=== PATIENT | male | born 1950 | race Caucasian/White ===

== ENCOUNTER 2019-11-19 11:22 | Inpatient (IN) | payer MEDICARE, MEDICAID ==
[~2019-11-19] VITALS: Ht 175.3 cm; Wt 61.7 kg
[2019-11-19 12:11] LABS: Basophils # (auto) 0.1 10 ^3/uL (0-0.2); Basophils % (auto) 1.4 % (0.0-2.0); Eosinophils # (auto) 0.1 10 ^3/uL (0-0.8); Eosinophils % (auto) 1.8 % (0.0-7.0); Hematocrit 42.6 % (41.0-53.0); Hemoglobin 14.3 g/dL (13.5-17.5); Lymphocytes % (auto) 18.8 % (10.0-50.0); Mean Corpuscular Hemoglobin 30.1 pg (28.0-32.0); Mean Corpuscular Hgb Conc. 33.5 g/dL (32.0-36.0); Mean Corpuscular Volume 89.9 fL (80.0-100.0); Monocytes # (auto) 0.5 10 ^3/uL (0-1.3); Monocytes % (auto) 9.5 % (0.0-12.0); Neutrophils # (auto) 3.6 10 ^3/uL (1.6-8.6); Neutrophils % (auto) 68.5 % (37.0-80.0); Platelet Count (auto) 156 10^3/uL (140-450); Red Blood Cells 4.74 10^6/uL (4.5-5.90); Red Cell Distribution Width 13.5 % (11.8-14.3); White Blood Cell 5.3 10^3/uL (4.4-10.8)
[2019-11-19 12:28] LABS: Albumin 2.4 g/dL (3.4-5.0); Calcium 8.4 mg/dL (8.5-10.1)
[2019-11-19 12:39] LABS: BUN/Creatinine Ratio 18.7
[2019-11-19 12:40] LABS: Bilirubin, Total 1.2 mg/dL (0.2-1.0); Total Protein 5.6 g/dL (6.4-8.2)
[2019-11-19] MEDS ORDERED: SODIUM CHLORIDE 0.9% 1,000 ML IV ONE (13:00)
[2019-11-19 13:24] LABS: Magnesium 1.8 mg/dL (1.6-2.6)
[2019-11-19 13:26] LABS: INR 1.06 (0.9-1.15); Partial Thromboplastin Time 29.3 sec (23.64-32.05)
[2019-11-19] MEDS ORDERED: IOHEXOL 350 MG/ML 100ML IJ ONE (15:43)
[2019-11-19] MEDS ORDERED: cefTRIAXone 1GM/50ML D5W 50 ML IV ONE (16:15)
[2019-11-19] MEDS ORDERED: ASPirin-EC 81 mg tab PO ONE (16:15)
[2019-11-19 16:27] LABS: Urine Bacteria NONE SEEN /hpf (None Seen); Urine Blood Negative /uL (Negative); Urine Mucus FEW (None Seen); Urine Specific Gravity 1.008 (1.001-1.035); Urine WBC 1 /hpf (0 - 3)
[2019-11-19] MEDS ORDERED: HYDROcodone-ACET 10/325MG TAB PO ONE (17:45)
[2019-11-19] MEDS ORDERED: NITROGLYCERIN 0.4 MG SL TAB SL PRN (18:15)
[2019-11-19] MEDS ORDERED: ACETAMINOPHEN 500 MG TAB PO PRN (18:15)
[2019-11-19] MEDS ORDERED: MORPHINE SULF INJ 2 MG/ML SYRINGE 1ML IV PRN ×2 (18:15)
[2019-11-19] MEDS ORDERED: ONDANSETRON HCL 4 MG/2 ML VIAL IV PRN (18:15)
--- NOTE | 2019-11-19 20:45 | NUR ---
Telemetry admit from [facility] admitted to Telemetry unit. Patient oriented to Mora abernathy RN, unit, room, bed, and unit policies regarding patient care and visiting hours. Patient now on continuous telemetry monitoring, tele box #29 and telemetry reading on arrival to unit is SINUS RHYTHM . Patient placed on bedside oxygen, weighed by bedscale and encouraged to call if they need something. All questions and concerns addressed, patient verbalized understanding.
[2019-11-19 21:00] VITALS: BP 116/71
[2019-11-19] MEDS: oxyCODONE ER 20 MG TAB PO SCH (21:24)
[2019-11-19] MEDS: methylPREDNISolone SOD SUCC 40 MG/ML VL IV SCH (21:24)
--- NOTE | 2019-11-19 21:24 | NUR ---
PAIN OXYCONTIN GIVEN ORDERED BY MD ON SCHEDULED TIME. PATIENT RATES PAIN 10/10 TO HIS BACK, NECK AND SHOULDERS WILL REASSESS PAIN IN ONE HOUR
--- NOTE | 2019-11-19 22:24 | NUR ---
PAIN REASSESSMENT PATIENT NOW RESTING COMFORTABLY, RATES PAIN 5/10, WHICH HE STATES IS TOLERABLE
[2019-11-19] MEDS: ALBUTEROL SULF 2.5 MG/0.5ML(0.5%) NEB SOLN NEB SCH (22:30)
[2019-11-19] MEDS: IPRATROPIUM BROM 0.5 MG/2.5ML INH SOL NEB SCH (22:30)
[2019-11-19] MEDS: BUDESONIDE (INHALATION) 0.5 MG/2 ML NEB NEB SCH (22:30)
[2019-11-19 23:04] VITALS: BP 121/80
[2019-11-20] MEDS ORDERED: ALBUAER3 IN (02:49)
[2019-11-20] MEDS ORDERED: CELE200C PO (02:50)
[2019-11-20] MEDS ORDERED: TAMS0.4C36 PO (02:51)
[2019-11-20] MEDS ORDERED: LOSA-69 PO (02:51)
[2019-11-20] MEDS ORDERED: DULO60CA PO (02:52)
[2019-11-20] MEDS ORDERED: PANT1INJ3 PO (02:52)
[2019-11-20] MEDS ORDERED: MELA3TAB27 PO (02:53)
[2019-11-20] MEDS ORDERED: LUBI24CA6 PO (02:54)
[2019-11-20] MEDS ORDERED: TIZA4CAP PO (02:55)
[2019-11-20] MEDS ORDERED: BENZ100C97 PO (02:55)
[2019-11-20] MEDS ORDERED: LISI-646 PO (02:56)
[2019-11-20] MEDS ORDERED: SIMV10TA84 PO (02:57)
[2019-11-20] MEDS ORDERED: ATOR40TA52 PO (02:58)
[2019-11-20] MEDS ORDERED: FINA5TAB4 PO (02:58)
[2019-11-20] MEDS ORDERED: BUDE1AER4 IN (02:59)
[2019-11-20] MEDS ORDERED: DULO60CA90 PO (03:00)
[2019-11-20] MEDS ORDERED: PRE1T PO (03:02)
[2019-11-20] MEDS ORDERED: AML5T PO (03:04)
[2019-11-20] MEDS ORDERED: SERT-274 PO (03:05)
[2019-11-20 05:00] VITALS: BP 121/86
[2019-11-20] MEDS: ALBUTEROL SULF 2.5 MG/0.5ML(0.5%) NEB SOLN NEB SCH ×5 (06:07→22:09)
[2019-11-20] MEDS: IPRATROPIUM BROM 0.5 MG/2.5ML INH SOL NEB SCH ×5 (06:07→22:09)
[2019-11-20] MEDS: BUDESONIDE (INHALATION) 0.5 MG/2 ML NEB NEB SCH ×2 (06:08→22:09)
--- NOTE | 2019-11-20 07:00 | NUR ---
CLOSING CAMPAIGN MANAGER AT BEDSIDE, MORNING RN MADE AWARE CALL LIGHT WITHIN REACH CARE ENDORSED TO DAY SHIFT RN
--- NOTE | 2019-11-20 08:00 | NUR ---
AWAKE ALERT ORIENTED TIMES 4. MASK ON 8L/MIN SATURATION 94%. HE REFUSED AN OXYMIZER AT THIS TIME TIME HE BEATRIZ IT HURTS HIS EARS. NO SIGNS OF DISTRESS.
--- NOTE | 2019-11-20 08:30 | NUR ---
REMOVED MASK TO EAT BREAKFAST NO SIGNS OF DISTRESS.
[2019-11-20 08:48] VITALS: BP 124/88
--- NOTE | 2019-11-20 10:00 | NUR ---
AMBULATED TO BATHROOM INDEPENDENTLY STEADY GAIT.
[2019-11-20] MEDS: oxyCODONE ER 20 MG TAB PO SCH ×2 (10:18→21:51)
[2019-11-20] MEDS: DULoxetine HCL 30 MG CAP PO SCH (10:18)
[2019-11-20] MEDS: methylPREDNISolone SOD SUCC 40 MG/ML VL IV SCH ×2 (10:19→21:51)
[2019-11-20] MEDS: FAMOTIDINE 20 MG TAB PO SCH (10:19)
[2019-11-20] MEDS: AZITHROMYCIN 250 MG TAB PO SCH (10:19)
--- NOTE | 2019-11-20 12:00 | NUR ---
SPOKE TO KESHAV RODRIGUEZ IN REFERENCE TO HELPING PATIENT OBTAIN A PRIMARY CARE PHYSICIAN.
[2019-11-20 13:00] VITALS: BP 135/84
[2019-11-20] MEDS ORDERED: cefTRIAXone 1GM/50ML D5W 50 ML IV ONE (13:15)
--- NOTE | 2019-11-20 13:24 | NUR ---
DR Addis FITZGERALD AT BEDSIDE DISCUSSED PLAN OF CARE WITH PATIENT. PULMONOLOGY CONSULT ORDERED FOR DR BRENNAN.
[2019-11-20] MEDS: LORazepam 0.5 MG TAB PO SCH ×2 (14:29→21:52)
[2019-11-20 16:32] VITALS: BP 148/94
[2019-11-20 18:00] VITALS: BP 130/84
[2019-11-20] MEDS ORDERED: DEXTROSE (50%) 50ML SYRG IV PRN (18:45)
--- NOTE | 2019-11-20 19:30 | NUR ---
OPENING NOTE REPORT RECEIVED FROM DAY SHIFT RN PATIENT IS A/OX4, ABLE TO VERBALIZE ALL NEEDS. PATIENT ON 8L SIMPLE FACE MASK WITH O2 AT 94%. POC DISCUSSED WITH PATIENT AND ALL QUESTIONS ANSWERED. WILL MONITOR Q1H PRN THROUGHOUT SHIFT, CALL LIGHT WITHIN REACH.
[2019-11-20] MEDS: ACCU-CHEK COMFORT CURVE STRIP VI SCH (21:45)
[2019-11-20] MEDS: InsuLIN REG 1unit/0.01ml Soln (100units/ml) SC SCH (21:50)
--- NOTE | 2019-11-20 21:51 | NUR ---
PAIN MEDICATED PATIENT WITH SCHEDULED OXYCONTIN. PATIENT RATES PAIN 10/10 TO HIS BACK WILL REASSESS IN ONE HOUR
--- NOTE | 2019-11-20 22:51 | NUR ---
PAIN REASSESSMENT PATIENT DENIES ANY PAIN. RESTING COMFORTABLY IN BED, WATCHING TV
[2019-11-21 05:00] VITALS: BP 140/88
[2019-11-21] MEDS: LORazepam 0.5 MG TAB PO SCH (06:00)
[2019-11-21] MEDS: ALBUTEROL SULF 2.5 MG/0.5ML(0.5%) NEB SOLN NEB SCH ×5 (06:28→22:23)
[2019-11-21] MEDS: IPRATROPIUM BROM 0.5 MG/2.5ML INH SOL NEB SCH ×5 (06:28→22:23)
--- NOTE | 2019-11-21 06:28 | NUR ---
Respiratory note: At bedside for scheduled medneb tx, found pt with O2 mask off, SPO2 74% on room air. Administered medneb tx, pt tolerated well, O2 saturation increasing. After tx, placed pt back on O2 simple mask 7LPM, SPO2 92%. Educated and instructed pt to keep O2 on, pt verbalized understanding. No s/s of respiratory distress noted.
--- NOTE | 2019-11-21 06:50 | NUR ---
MEDICATION HELD HELD AM ATIVAN DOSE PATIENT SLEEPING COMFORTABLY- NO SIGNS OF ANXIETY
[2019-11-21] MEDS: InsuLIN REG 1unit/0.01ml Soln (100units/ml) SC SCH ×4 (06:54→21:56)
--- NOTE | 2019-11-21 07:20 | NUR ---
CLOSING PATIENT IS SLEEPING COMFORTABLY, VISIBLE RISE AND FALL OF CHEST. FALL PRECAUTIONS IN PLACE, CALL LIGHT WITHIN REACH CARE ENDORSED TO DAYSHIFT RN
[2019-11-21] MEDS: cefTRIAXone 1GM/50ML D5W 50 ML IV SCH (08:44)
[2019-11-21] MEDS: FAMOTIDINE 20 MG TAB PO SCH (08:55)
[2019-11-21] MEDS: methylPREDNISolone SOD SUCC 40 MG/ML VL IV SCH ×2 (08:55→21:46)
[2019-11-21] MEDS: AZITHROMYCIN 250 MG TAB PO SCH (08:55)
[2019-11-21] MEDS: DULoxetine HCL 30 MG CAP PO SCH (08:56)
[2019-11-21 09:00] VITALS: BP 149/100
[2019-11-21] MEDS: BUDESONIDE (INHALATION) 0.5 MG/2 ML NEB NEB SCH ×2 (10:08→22:23)
[2019-11-21] MEDS ORDERED: HYDROcodone-ACET 5/325MG TAB PO PRN (10:15)
[2019-11-21 10:20] LABS: Albumin 2.6 g/dL (3.4-5.0); Bilirubin, Direct 0.2 mg/dL (0-0.2)
[2019-11-21 10:23] LABS: Bilirubin, Total 0.3 mg/dL (0.2-1.0); Total Protein 6.1 g/dL (6.4-8.2)
[2019-11-21] MEDS: ACCU-CHEK COMFORT CURVE STRIP VI SCH ×2 (10:45→21:57)
--- NOTE | 2019-11-21 11:30 | NUR ---
DR. BRENNAN AT BEDSIDE TO DISCUSS PLAN OF CARE
[2019-11-21] MEDS ORDERED: oxyCODONE ER 20 MG TAB PO ONE (12:00)
[2019-11-21] MEDS: MECLIZINE HCL 25 MG TAB PO PRN ×2 (12:12→20:37)
--- NOTE | 2019-11-21 14:00 | NUR ---
PATIENT COMPLAINS OF CHEST PAIN ONLY WHEN HE BREATHS IN AND OUT, DID EKG AND NOTIFIED DR. FITZGERALD. NO ORDERS GIVEN AT THIS TIME.
--- NOTE | 2019-11-21 16:47 | NUR ---
IV insertion IV access obtained, via clean sterile technique by inserting 22 gauge catheter at LEFT FOREARM after 1 attempt. IV secured properly. No trauma to site. Patient tolerated well. Addendum: 11/21/19 at 1649 by CIARRA CARVAJAL RN RN IV INSERTION TO THE LEFT UPPER ARM NOT FOREARM
[2019-11-21 17:10] VITALS: BP 145/79
--- NOTE | 2019-11-21 19:35 | NUR ---
Opening Shift Note Assumed care of patient, awake and alert. No S/S of distress/SOB or pain. Safety measures in place bed in lowest position, side rails up x2, and call light within reach. Instructed on POC and to call for assist PRN, will continue to monitor for changes Q1hr and PRN.
[2019-11-21 21:40] VITALS: BP 147/101
[2019-11-21] MEDS: oxyCODONE ER 20 MG TAB PO SCH (21:47)
--- NOTE | 2019-11-21 21:47 | NUR ---
Pain Patient complaining of back and neck pain 10/10. Patient has scheduled pain medication, will administer. Educated patient to turn every two hours to help ease the pain in his back. Will reassess in one hour. Will continue to monitor every hour and as needed.
--- NOTE | 2019-11-21 22:47 | NUR ---
Pain reassessment Patient is sleeping with eyes closed. Patient appears to be free of pain and distress. Patient is not moaning, grimacing, or tossing side to side. Will continue to monitor every hour and as needed.
--- NOTE | 2019-11-22 02:35 | NUR ---
Patient awake requesting breathing treatment RT paged.
--- NOTE | 2019-11-22 02:39 | NUR ---
Respiratory returned called, will visit patient and initiate breathing treatment. Patient informed. Will continue to monitor every hour and as needed.
[2019-11-22] MEDS: IPRATROPIUM BROM 0.5 MG/2.5ML INH SOL NEB SCH ×6 (02:56→22:21)
[2019-11-22] MEDS: ALBUTEROL SULF 2.5 MG/0.5ML(0.5%) NEB SOLN NEB SCH ×6 (02:56→22:21)
[2019-11-22 04:47] VITALS: BP 136/97
--- NOTE | 2019-11-22 04:56 | NUR ---
Patient had a two second run of Afib RVR. Patient denies any discomfort of pain. Patient currently running NSR. Will continue to monitor every hour and as needed.
[2019-11-22] MEDS: InsuLIN REG 1unit/0.01ml Soln (100units/ml) SC SCH ×5 (06:44→22:09)
--- NOTE | 2019-11-22 07:33 | NUR ---
Opening Shift Note Assumed care of patient, awake and alert with no S/S of distress/SOB or pain. For safety, patients bed is locked, with 2 side rails up and the call light with in reach. Instructed on POC and to call for assist PRN, will continue to monitor for any changes in condition.
--- NOTE | 2019-11-22 08:30 | NUR ---
Dr. Addis Aaron at bedside to discuss plan of care with patient.
[2019-11-22 09:00] VITALS: BP 125/83
[2019-11-22] MEDS: AZITHROMYCIN 250 MG TAB PO SCH (09:40)
[2019-11-22] MEDS: MECLIZINE HCL 25 MG TAB PO PRN ×3 (09:40→22:05)
[2019-11-22] MEDS: DULoxetine HCL 30 MG CAP PO SCH ×2 (09:40→09:49)
[2019-11-22] MEDS: methylPREDNISolone SOD SUCC 40 MG/ML VL IV SCH (09:40)
[2019-11-22] MEDS: oxyCODONE ER 20 MG TAB PO SCH ×2 (09:41→21:56)
[2019-11-22] MEDS: FAMOTIDINE 20 MG TAB PO SCH (09:41)
[2019-11-22] MEDS: cefTRIAXone 1GM/50ML D5W 50 ML IV SCH (09:41)
[2019-11-22] MEDS: BUDESONIDE (INHALATION) 0.5 MG/2 ML NEB NEB SCH ×2 (10:08→22:21)
--- NOTE | 2019-11-22 11:45 | NUR ---
After receiving verbal ok from Dr. Aaron, patient took shower independently.
[2019-11-22] MEDS: ACCU-CHEK COMFORT CURVE STRIP VI SCH ×2 (12:09→22:01)
[2019-11-22 13:12] VITALS: BP 137/98
--- NOTE | 2019-11-22 13:38 | NUR ---
NUTRITION ASSESSMENT NOTES Please refer to link notes of nutrition screen form filed under the intervention section of the plan of care for further details. Est. Energy Needs: 2327-7544 kcal (25-30 kcal/kg BW). Est. Protein Needs: 76-95 gms/day (1.2-1.5 gms/kg BW). Will continue to monitor pertinent labs and reassess nutrient need prn Addendum: 11/22/19 at [address] Amended: Links added.
[2019-11-22 16:35] VITALS: BP 163/109
--- NOTE | 2019-11-22 17:33 | NUR ---
Paged international relations professor hospitalist for patients elevated blood pressure. Waiting for return call.
--- NOTE | 2019-11-22 18:03 | NUR ---
Dr. Hanson at bedside to assess patient and discuss plan of care. Orders received will document and carry out
--- NOTE | 2019-11-22 18:40 | NUR ---
Dr. Lopez called and received orders, will document and follow through
[2019-11-22] MEDS: LISINOPRIL 20 MG TAB PO SCH (19:17)
[2019-11-22] MEDS: amLODIPine BESYLATE 5 MG TAB PO SCH (19:17)
[2019-11-22 19:21] VITALS: BP 152/96
--- NOTE | 2019-11-22 19:35 | NUR ---
Opening Shift Note Assumed care of patient, awake and alert. No S/S of distress/SOB or pain. Safety measures in place bed in lowest position, side rails x2 up, and call light within reach. Instructed on POC and to call for assist PRN, will continue to monitor for changes Q1hr and PRN.
[2019-11-22] MEDS: methylPREDNISolone SOD SUCC 125 MG/2 ML VL IV SCH (21:56)
[2019-11-22 22:00] VITALS: BP 132/72
[2019-11-23 05:56] VITALS: BP 140/89
[2019-11-23] MEDS: InsuLIN REG 1unit/0.01ml Soln (100units/ml) SC SCH ×4 (06:49→22:25)
[2019-11-23] MEDS: ALBUTEROL SULF 2.5 MG/0.5ML(0.5%) NEB SOLN NEB SCH ×5 (07:21→22:14)
[2019-11-23] MEDS: IPRATROPIUM BROM 0.5 MG/2.5ML INH SOL NEB SCH ×5 (07:21→22:14)
--- NOTE | 2019-11-23 08:33 | NUR ---
Dr. Aaron at bedside to discuss plan of care with patient.
[2019-11-23 08:57] VITALS: BP 141/73
[2019-11-23] MEDS: FAMOTIDINE 20 MG TAB PO SCH (09:39)
[2019-11-23] MEDS: methylPREDNISolone SOD SUCC 125 MG/2 ML VL IV SCH ×2 (09:39→22:16)
[2019-11-23] MEDS: amLODIPine BESYLATE 5 MG TAB PO SCH (09:40)
[2019-11-23] MEDS: oxyCODONE ER 20 MG TAB PO SCH ×2 (09:41→22:15)
[2019-11-23] MEDS: AZITHROMYCIN 250 MG TAB PO SCH (09:42)
[2019-11-23] MEDS: DULoxetine HCL 30 MG CAP PO SCH (09:42)
[2019-11-23] MEDS: cefTRIAXone 1GM/50ML D5W 50 ML IV SCH (09:43)
[2019-11-23] MEDS: LISINOPRIL 20 MG TAB PO SCH (09:44)
[2019-11-23] MEDS: BUDESONIDE (INHALATION) 0.5 MG/2 ML NEB NEB SCH ×2 (09:48→19:37)
[2019-11-23 13:00] VITALS: BP 132/82
[2019-11-23] MEDS: ACCU-CHEK COMFORT CURVE STRIP VI SCH ×2 (13:25→22:17)
[2019-11-23 17:00] VITALS: BP 138/92
[2019-11-23] MEDS: TAMSULOSIN HYDROCHLORIDE 0.4 MG CAP PO SCH (18:45)
--- NOTE | 2019-11-23 19:29 | NUR ---
IV insertion IV access obtained, via clean sterile technique by inserting 20 gauge catheter to the right forearm after one attempt. IV secured properly. No trauma to site. Patient tolerated well.
[2019-11-23 22:00] VITALS: BP_SYST 136
[2019-11-23] MEDS: ACETYLCYSTEINE 10 %(100MG/ML) SOL 4ML NEB SCH (22:14)
[2019-11-23] MEDS: MECLIZINE HCL 25 MG TAB PO PRN (22:25)
[2019-11-24 05:52] VITALS: BP 126/80
[2019-11-24] MEDS: InsuLIN REG 1unit/0.01ml Soln (100units/ml) SC SCH ×4 (06:39→21:31)
[2019-11-24] MEDS: ACETYLCYSTEINE 10 %(100MG/ML) SOL 4ML NEB SCH ×3 (07:22→22:50)
[2019-11-24] MEDS: IPRATROPIUM BROM 0.5 MG/2.5ML INH SOL NEB SCH ×5 (07:22→22:50)
[2019-11-24] MEDS: ALBUTEROL SULF 2.5 MG/0.5ML(0.5%) NEB SOLN NEB SCH ×5 (07:22→22:49)
--- NOTE | 2019-11-24 07:55 | NUR ---
Opening Note Assumed pt care from [facility] nurse. Pt is a/ox4 with no s/s of distress or SOB. Pt is currently sitting upright in bed with c/o pain 9/10 located in his back, discussed available pain medications. Pt is on 8L via simple mask. Discussed POC with pt; pt verbalized understanding. Safety measures maintained with call light within reach, bed in lowest position and side rails up. Will continue to monitor.
[2019-11-24] MEDS: cefTRIAXone 1GM/50ML D5W 50 ML IV SCH (08:30)
[2019-11-24 09:00] VITALS: BP 129/88
[2019-11-24] MEDS: methylPREDNISolone SOD SUCC 125 MG/2 ML VL IV SCH ×2 (09:46→21:20)
[2019-11-24] MEDS: FAMOTIDINE 20 MG TAB PO SCH (09:46)
[2019-11-24] MEDS: LISINOPRIL 20 MG TAB PO SCH (09:47)
[2019-11-24] MEDS: amLODIPine BESYLATE 5 MG TAB PO SCH (09:47)
[2019-11-24] MEDS: DULoxetine HCL 30 MG CAP PO SCH (09:47)
[2019-11-24] MEDS: oxyCODONE ER 20 MG TAB PO SCH ×2 (09:47→21:24)
[2019-11-24] MEDS: AZITHROMYCIN 250 MG TAB PO SCH (09:47)
--- NOTE | 2019-11-24 09:51 | NUR ---
Dr Aaron at Bedside MD to see pt. Plans to d/c pt home today. Requested a social service consult be place for Home Health. also requests that pt be seen by Dr Hanson before d/c. Will continue to monitor.
[2019-11-24 10:48] LABS: Hepatitis B Surface Antibody Negative
[2019-11-24] MEDS: ACCU-CHEK COMFORT CURVE STRIP VI SCH ×2 (11:15→21:31)
[2019-11-24 11:26] LABS: Hepatitis A Total Antibody Positive
[2019-11-24] MEDS: BUDESONIDE (INHALATION) 0.5 MG/2 ML NEB NEB SCH ×2 (11:46→22:50)
[2019-11-24 12:12] LABS: Hepatitis A Ab IgM Negative
[2019-11-24 12:13] LABS: Hepatitis B Core Total AB Negative
[2019-11-24 12:14] LABS: Hepatitis B Core IgM Negative; Hepatitis B Surface Antigen Negative (Negative)
[2019-11-24 12:20] LABS: Hepatitis C Antibody Positive (Negative)
--- NOTE | 2019-11-24 12:23 | NUR ---
Micro Report Unique from [facility] reported a positive for Hep C. Addendum: 11/24/19 at 1355 by MARK GAN RN RN MD aware of pt's Hep panel. to see pt to discuss.
[2019-11-24 13:00] VITALS: BP 141/97
--- NOTE | 2019-11-24 13:55 | NUR ---
Pt Upset Upon rounding with Dr Aaron and relaying information regarding pt's Hep C panel, pt became visibly upset and agitated. Pt further upset and confused regarding POC as far as d/c planning. discussed with pt about plans to go home and pt's wishes to not go back to a facility. MD further relayed information regarding positive Hep panel; pt upset and stated "I must have got it in the hospital". MD attempted to provide pt with education regarding transmission of Hep; pt becomes more and more visibly upset stating "you need to retest me... why did you do this test". stated that he would talk with the GI physician to speak with pt. MD further tried to explain that pt would need to see a Quality Management Coordinator for further treatment. Pt still upset. Will continue to monitor, reinforce education, and continue with d/c.
--- NOTE | 2019-11-24 14:38 | NUR ---
D/C Planning Dr Aaron called. Requested that we hold pt's d/c until tomorrow. requested another GI consult due to pt's new lab results. Will notify pt.
--- NOTE | 2019-11-24 15:00 | NUR ---
POC Discussed POC and plans to push off d/c. 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 Spoke with pt about his positive Hep C; provided education to pt and that facts that HIV is not Hep C. Pt still very upset stating that i have "attitude" and that "you are going to loose your job". Attempted to calm pt down; pt still very upset. Could not calm pt down.
--- NOTE | 2019-11-24 16:27 | NUR ---
Pt Requests Prostate Medication Pt requests "prostate medication". Discussed with pt that next scheduled BPH medication would be at 1800 and that I could not provide medication until that time. Pt visibly upset and states "then leave, you cannot help me". Will continue to monitor.
[2019-11-24 16:50] VITALS: BP 134/94
[2019-11-24] MEDS: TAMSULOSIN HYDROCHLORIDE 0.4 MG CAP PO SCH (17:35)
--- NOTE | 2019-11-24 19:40 | NUR ---
Opening Shift Note Assumed care of patient, awake and alert. No S/S of distress/SOB. The patient c/o generalized upper body pain. Educated the patient on when he will receive his scheduled pain medication. Instructed on POC and to call for assist PRN, will continue to monitor for changes Q1hr and PRN.
[2019-11-24 22:00] VITALS: BP 139/87
--- NOTE | 2019-11-24 22:35 | NUR ---
PAIN REASSESSMENT The patient reports that his pain has improved. Current pain level is 5/10. Will continue to monitor the patient.
[2019-11-25] VITALS (7 sets, daily range): BP systolic 124–148; BP diastolic 76–94
[2019-11-25] MEDS: ACETYLCYSTEINE 10 %(100MG/ML) SOL 4ML NEB SCH ×3 (06:33→23:14)
[2019-11-25] MEDS: ALBUTEROL SULF 2.5 MG/0.5ML(0.5%) NEB SOLN NEB SCH ×5 (06:33→23:14)
[2019-11-25] MEDS: IPRATROPIUM BROM 0.5 MG/2.5ML INH SOL NEB SCH ×5 (06:33→23:14)
--- NOTE | 2019-11-25 06:43 | NUR ---
MED NEB TX ADMINISTERED WITH EZ PAP THERAPY PEEP SET TO 5 CM H2O. PT TOLERATED WELL WITH GOOD PT EFFORT.
[2019-11-25] MEDS: InsuLIN REG 1unit/0.01ml Soln (100units/ml) SC SCH ×4 (07:00→21:36)
--- NOTE | 2019-11-25 07:30 | NUR ---
Opening Note Assumed Patient care from CHAZ RN.
--- NOTE | 2019-11-25 09:00 | NUR ---
Patient Rounds Patient currently asleep in bed, no signs of distress at this time. Safety precautions in place, will continue to monitor.
[2019-11-25] MEDS: cefTRIAXone 1GM/50ML D5W 50 ML IV SCH (09:24)
[2019-11-25] MEDS: methylPREDNISolone SOD SUCC 125 MG/2 ML VL IV SCH ×2 (09:25→21:33)
[2019-11-25] MEDS: DULoxetine HCL 30 MG CAP PO SCH (09:25)
[2019-11-25] MEDS: AZITHROMYCIN 250 MG TAB PO SCH (09:25)
[2019-11-25] MEDS: FAMOTIDINE 20 MG TAB PO SCH (09:25)
[2019-11-25] MEDS: amLODIPine BESYLATE 5 MG TAB PO SCH (09:26)
[2019-11-25] MEDS: LISINOPRIL 20 MG TAB PO SCH (09:26)
[2019-11-25] MEDS: oxyCODONE ER 20 MG TAB PO SCH ×2 (09:28→21:33)
--- NOTE | 2019-11-25 10:10 | NUR ---
at bedside Dr. Aaron at bedside discussing plan of care with patient. nutritional services cook, Iraida was also at bedside. Patient upset about prior health care services and requesting that Md obtain medical health care records from [facility], [facility], and (former) PCP Dr. Dalal in [place]. Patient requested that RN "Write this stuff down:" Dr. Dalal refuses to see patient, patient "slept in car and got pneumonia" and that he was sent to SNF that "he wasn't supposed to be at." Patient provided names/cards/brochures of prior facilities he has states he has stayed at but did not request records from them: [facility], [facility] and [facility]. Will send out medical release forms as requested by MD.
[2019-11-25] MEDS: BUDESONIDE (INHALATION) 0.5 MG/2 ML NEB NEB SCH ×2 (10:11→23:14)
--- NOTE | 2019-11-25 10:12 | NUR ---
MD JOEL ADMINISTERED WITH EZ PAP.
--- NOTE | 2019-11-25 10:45 | NUR ---
MEDICAL RECORDS: REQUEST FOR MEDICAL RECORDS FAXED TO [facility].
--- NOTE | 2019-11-25 11:09 | NUR ---
MEDICAL RECORDS: FAXED REQUEST FOR MEDICAL RECORDS TO [facility].
[2019-11-25] MEDS: ACCU-CHEK COMFORT CURVE STRIP VI SCH ×2 (11:20→21:34)
--- NOTE | 2019-11-25 11:20 | NUR ---
MEDICAL RECORDS: SENT REQUEST FOR MEDICAL RECORDS TO DR. VILLA OFFICE, PATIENTS PCP.
--- NOTE | 2019-11-25 12:00 | NUR ---
Flomax Patient upset about flomax only administered at 1800. Patient informed that medication is scheduled but cannot be given until 1800.
--- NOTE | 2019-11-25 12:50 | NUR ---
Medical Records Medical records faxed over from [facility]. Will place in patient chart.
--- NOTE | 2019-11-25 14:15 | NUR ---
MED NEB TX ADMINISTERED WITH EZ PAP THERAPY. PEEP 5 CM H2O. PT TOLERATED WELL.
--- NOTE | 2019-11-25 14:30 | NUR ---
assessment Patient is a 69 year old male who is alert and oriented. Prior to admission patient informed me he was at a rehab. Patient told me it doesnt matter what the name of the facility is. Patient informed me he has no need for DME. Patient has no pcp. Camila Chen to see patient for PCP. I informed patient of his ss consult for home health. Patient refused home health. Patient informed me that he spoke with his daughter and will be returning home with her. Patient is frustrated and does not want to speak with me. I informed patient that if he changes his mind, I will be glad to see him again. Addendum: 11/25/19 at 1434 by Camila Ortiz Amended: Links added.
--- NOTE | 2019-11-25 17:13 | NUR ---
Patient Rounds Patient currently agitated. Patient complaining of flomax scheduling, patient informed that RN cannot administer medication without an MD order. Patient shouting at ANGELITO and Makayla Corea; Patient states, "all of you people think you know what's best for me but you don't." When asked if RN could do check blood glucose levels, patient became more upset, shouting "why wouldn't I let you? Have I not let you before? Just do whatever you need to do. I don't know why you do this, I never check it at home" patient educated that RN was informing him that she will be checking his glucose and informed patient that he has the right to refuse procedures and medications if he does not agree with treatment. Patient glucose at 111, patient continued to argue and shout. Attempt to start IV could not be done at this time due to patient agitation and aggressiveness. Patient laid back down in bed and turned away from RN. Safety precautions in place, will continue to monitor. Addendum: 11/25/19 at 1720 by LOPEZ PICKENS RN RN IV: will attempt at a later time and/or endorse to CHAZ EATON.
[2019-11-25] MEDS: TAMSULOSIN HYDROCHLORIDE 0.4 MG CAP PO SCH (17:21)
--- NOTE | 2019-11-25 19:06 | NUR ---
Closing Note Report given to CHAZ EATON.
--- NOTE | 2019-11-25 19:40 | NUR ---
Opening Shift Note Assumed care of patient, awake and alert. No S/S of distress/SOB or pain. Instructed on POC and to call for assist PRN, will continue to monitor for changes Q1hr and PRN. bed in low position and call light within reach. patient has no iv access. patient stated he is okay with placement of new iv.
--- NOTE | 2019-11-25 20:00 | NUR ---
IV insertion/linen change IV access obtained, via clean sterile technique by inserting right gauge catheter at 22 after 1 attempt. IV secured properly. No trauma to site. Patient tolerated well. linen change done per patient request. new telemonitor stickers applied to patient chest.
[2019-11-25] MEDS: DOCUSATE SOD 100 MG CAP PO PRN (21:33)
--- NOTE | 2019-11-25 21:33 | NUR ---
patient reports pain 10/10 to back. patient medicated per protocol
--- NOTE | 2019-11-25 21:40 | NUR ---
patient educated on how to use IS. patient verbalized understanding
--- NOTE | 2019-11-25 22:33 | NUR ---
patient reports pain 0/10
--- NOTE | 2019-11-25 23:00 | NUR ---
respiratory paged for breathing treatment. o2 saturation 93% rr 20
[2019-11-26 04:58] VITALS: BP 143/87
[2019-11-26] MEDS: IPRATROPIUM BROM 0.5 MG/2.5ML INH SOL NEB SCH ×5 (06:36→21:36)
[2019-11-26] MEDS: ALBUTEROL SULF 2.5 MG/0.5ML(0.5%) NEB SOLN NEB SCH ×5 (06:36→21:36)
[2019-11-26] MEDS: ACETYLCYSTEINE 10 %(100MG/ML) SOL 4ML NEB SCH (06:36)
[2019-11-26] MEDS: InsuLIN REG 1unit/0.01ml Soln (100units/ml) SC SCH ×4 (06:42→21:35)
--- NOTE | 2019-11-26 06:57 | NUR ---
patient rounds patient is in bed watching tv denies sob distress or pain
--- NOTE | 2019-11-26 07:35 | NUR ---
REPORT GIVEN TO DAYSHIFT RN PATIENT DENIES SOB DISTRESS OR PAIN
--- NOTE | 2019-11-26 08:00 | NUR ---
ASSUMED CARE. O2 SIMPLE MASK 5L. USING ACCESSORY MUSCLES LABORED BREATHING. INSPIRATORY WHEEZING AND DIMINISHED EXHALE. EXCITED, TALKATIVE. MULTIPLE COMPLAINTS. REPORTS NOT RECEIVING ENOUGH FOOD WITH MEALS. REQUESTS ENSURE SUPPLEMENT. REPORTS BOTHERED BY MD ASKING HIM IN FRONT OF OTHERS AND WITH TWO NURSES PRESENT IF HE HAS HAD SEX WITH MED. REPORTS MD HAS TOLD HIM HE HAS DZ BECAUSE OF [place]. REPORTS UPSET WITH BEING TOLD HE HAS HIV AND HE DOES NOT BELIEVE HE HAS HIV. ASKS FOR RECORDS FROM PREVIOUS VISITS AT OTHER HOSPITALS. REPORTS HE HAS BEEN SEEN IN [place] PRIOR TO COMING TO THIS REGION. ADDITIONAL BREAKFAST REQUESTED AND ARRIVES. AGITATED AND DISGRUNTLED.
[2019-11-26 09:00] VITALS: BP 143/95
[2019-11-26] MEDS: oxyCODONE ER 20 MG TAB PO SCH ×2 (10:15→21:31)
[2019-11-26] MEDS: AZITHROMYCIN 250 MG TAB PO SCH (10:15)
[2019-11-26] MEDS: FAMOTIDINE 20 MG TAB PO SCH (10:15)
[2019-11-26] MEDS: LISINOPRIL 20 MG TAB PO SCH (10:16)
[2019-11-26] MEDS: methylPREDNISolone SOD SUCC 125 MG/2 ML VL IV SCH ×3 (10:17→21:31)
[2019-11-26] MEDS: amLODIPine BESYLATE 5 MG TAB PO SCH (10:17)
[2019-11-26] MEDS: DULoxetine HCL 30 MG CAP PO SCH (10:17)
[2019-11-26] MEDS: cefTRIAXone 1GM/50ML D5W 50 ML IV SCH (10:18)
[2019-11-26] MEDS: BUDESONIDE (INHALATION) 0.5 MG/2 ML NEB NEB SCH ×2 (10:37→21:36)
--- NOTE | 2019-11-26 10:37 | NUR ---
RT NOTE: PT IS UNAVAILABLE FOR SCHEDULED TX. DATA PROCESSING CLERK STATED THAT HE HAS JUST GOTTEN IN THE SHOWER. WILL RETURN FOR NEXT SCHEDULED TX.
[2019-11-26] MEDS ORDERED: SERTRALINE HCL 50 MG TAB PO ONE (12:15)
[2019-11-26] MEDS ORDERED: DEXTROSE (50%) 50ML SYRG IV PRN (12:15)
[2019-11-26] MEDS ORDERED: POTASSIUM CHL 20 Meq TABLET PO ONE (12:15)
[2019-11-26] MEDS ORDERED: FUROSEMIDE 20 MG/2 ML VIAL IV ONE (12:15)
[2019-11-26 12:38] VITALS: BP 139/73
--- NOTE | 2019-11-26 13:31 | NUR ---
Nutrition Follow-up Wt.: 68.2 kg Pt is currently on a Cardiac, Fine Chopped diet with good PO intake aeb 75% intake over 7 meals. Pt also receiving Ensure high protein TID for nutritional supplement. RN reported that pt was requesting additional food. Per nutrition services, will provide pt with double meal. Will continue to monitor PO intake, skin status, pertinent labs and weight trends. Will f/u in 3 to 5 days. Est. Energy Needs: 7868-2296 kcal (25-30 kcal/kg BW). Est. Protein Needs: 76-95 gms/day (1.2-1.5 gms/kg BW). Labs 11/25: POC 114 H Skin: Francisco scale 21, low risk, skin intact. GI: Pt had BM on 11/25/19 per aged or disabled carer. PES: 1) Altered nutrition related lab values r/t current medical condition aeb hypoalbuminemia, hypoproteinemia, hyponatremia, hypocalcemia Recommendations: 1) Consider to continue monitoring pertinent labs. If Albumin continues trending down, consider Prostat 1 pkt BID. 2) Continue current plan of care.
[2019-11-26] MEDS ORDERED: DOCU-94 PO (16:09)
[2019-11-26] MEDS ORDERED: MOMLQ GT (16:09)
[2019-11-26 16:19] VITALS: BP 148/96
[2019-11-26] MEDS ORDERED: FUROSEMIDE INJECTION 10 ML ONE (16:38)
[2019-11-26] MEDS: Ensure HIGH Protein Chocolate 8oz Bottle PO SCH ×2 (17:00→18:00)
[2019-11-26] MEDS: DOCUSATE SOD 100 MG CAP PO PRN (17:07)
[2019-11-26] MEDS: ACCU-CHEK COMFORT CURVE STRIP VI SCH ×2 (17:18→21:32)
[2019-11-26] MEDS: TAMSULOSIN HYDROCHLORIDE 0.4 MG CAP PO SCH (19:44)
--- NOTE | 2019-11-26 19:45 | NUR ---
PT SHOWERED IN THE MID AM. TAKES IN 100% OF MEALS. RESPIRATORY EFFORT IMPROVED. MORE RESTFUL.
--- NOTE | 2019-11-26 19:50 | NUR ---
Opening Shift Note Assumed care of patient. patient is sleeping. bilateral chest rise and fall rr 19. on 6l Oxymizer. No S/S of distress/SOB or pain. Bed in low position and call light within reach. Will continue to monitor for changes Q1hr and PRN.
[2019-11-26] MEDS: ATORVASTATIN 20 MG TAB PO SCH (21:31)
[2019-11-26 22:00] VITALS: BP 136/96
--- NOTE | 2019-11-26 22:31 | NUR ---
pain reassessment 0/10 pain
[2019-11-27] MEDS: IPRATROPIUM BROM 0.5 MG/2.5ML INH SOL NEB SCH ×6 (02:31→23:05)
[2019-11-27] MEDS: ALBUTEROL SULF 2.5 MG/0.5ML(0.5%) NEB SOLN NEB SCH ×6 (02:31→23:05)
--- NOTE | 2019-11-27 02:37 | NUR ---
Respiratory note: PAGED TO BEDSIDE FOR MED NEB TX. PT PREVIOUS STATED TO NOT WAKE HIM UP PAST 2129. PT CLAIMING HE IS SOB, NO RESPIRATORY DISTRESS NOTED. UNSCHEDULED MED NEB TX GIVEN AT THIS TIME DUE MEDICATION SCHEDULE. WILL CONTINUE TO MONITOR.
[2019-11-27 05:00] VITALS: BP 132/88
[2019-11-27] MEDS: methylPREDNISolone SOD SUCC 125 MG/2 ML VL IV SCH (06:03)
[2019-11-27] MEDS: InsuLIN REG 1unit/0.01ml Soln (100units/ml) SC SCH ×5 (06:07→22:09)
[2019-11-27] MEDS: ACCU-CHEK COMFORT CURVE STRIP VI SCH ×4 (06:07→22:07)
--- NOTE | 2019-11-27 06:51 | NUR ---
patient rounds patient is in bed sleeping. bilateral chest rise and fall rr 19. shows no signs of distress, sob or pain. bed in low position and call light within reach
[2019-11-27 07:00] LABS: Calcium 8.7 mg/dL (8.5-10.1); Potassium 4.4 mmol/L (3.5-5.1)
[2019-11-27 07:03] LABS: BUN/Creatinine Ratio 38.7
--- NOTE | 2019-11-27 07:32 | NUR ---
REPORT GIVEN TO DAYSHIFT RN. PATIENT DENIES SOB DISTRESS OR PAIN
[2019-11-27] MEDS: Ensure HIGH Protein Chocolate 8oz Bottle PO SCH ×2 (08:00→13:00)
[2019-11-27 09:00] VITALS: BP 125/87
[2019-11-27] MEDS: BUDESONIDE (INHALATION) 0.5 MG/2 ML NEB NEB SCH ×2 (10:00→18:39)
[2019-11-27] MEDS: cefTRIAXone 1GM/50ML D5W 50 ML IV SCH (10:00)
--- NOTE | 2019-11-27 10:00 | NUR ---
DR. JOSE A ACEVEDO. CONTINUES DISGRUNTLED HAS MANY COMPLAINTS WITH FOOD SERVED AND QUESTIONS IF ALL OF THE MEDICATIONS HE SHOULD BE GETTING ARE ORDERED. NOW TOLERATES 2L NC O2 SAT 94% - 96% NO LONGER USING MASK.
--- NOTE | 2019-11-27 10:00 | NUR ---
Respiratory note: SCHEDULED MED NEB TX NOT GIVEN. PT WAS ASLEEP AND STATED HE DID NOT WANT TO DO TX UNTIL AFTER HE ATE. BREAKFAST TRAY WAS STILL SITTING UNTOUCHED AT BEDSIDE. NO RESP DISTRESS NOTED. PT ON ROOM AIR.
[2019-11-27] MEDS: DULoxetine HCL 30 MG CAP PO SCH (11:17)
[2019-11-27] MEDS: oxyCODONE ER 20 MG TAB PO SCH ×2 (11:21→22:10)
[2019-11-27] MEDS: amLODIPine BESYLATE 5 MG TAB PO SCH (11:21)
[2019-11-27] MEDS: FAMOTIDINE 20 MG TAB PO SCH (11:22)
[2019-11-27] MEDS: LISINOPRIL 20 MG TAB PO SCH (11:22)
[2019-11-27] MEDS: AZITHROMYCIN 250 MG TAB PO SCH (11:24)
[2019-11-27] MEDS: SERTRALINE HCL 50 MG TAB PO SCH (12:30)
[2019-11-27] MEDS ORDERED: POTASSIUM CHL 10 Meq TABLET PO ONE (12:45)
[2019-11-27] MEDS ORDERED: FUROSEMIDE 20 MG TAB PO ONE (12:45)
[2019-11-27 13:00] VITALS: BP 150/93
[2019-11-27] MEDS: ALPRAZolam 0.25 MG TAB PO PRN ×2 (13:18→22:10)
--- NOTE | 2019-11-27 14:00 | NUR ---
AGITATED, APPROACHES MULTIPLE TIMES TO THE NSG STATION WITH REQUESTS. DANCE PROFESSOR MEDICATES WITH PRN XANAX FOR ANXIETY.
[2019-11-27 15:19] LABS: Basophils # (auto) 0 10 ^3/uL (0-0.2); Basophils % (auto) 0.1 % (0.0-2.0); Eosinophils # (auto) 0 10 ^3/uL (0-0.8); Eosinophils % (auto) 0.1 % (0.0-7.0); Hemoglobin 15.2 g/dL (13.5-17.5); Lymphocytes # (auto) 0.7 10 ^3/uL (0.4-5.4); Lymphocytes % (auto) 4.4 % (10.0-50.0); Mean Corpuscular Hemoglobin 30.3 pg (28.0-32.0); Mean Corpuscular Hgb Conc. 33.8 g/dL (32.0-36.0); Mean Corpuscular Volume 89.6 fL (80.0-100.0); Monocytes # (auto) 1.6 10 ^3/uL (0-1.3); Monocytes % (auto) 9.6 % (0.0-12.0); Neutrophils % (auto) 85.8 % (37.0-80.0); Platelet Count (auto) 282 10^3/uL (140-450); Red Blood Cells 5.02 10^6/uL (4.5-5.90); Red Cell Distribution Width 13.3 % (11.8-14.3); White Blood Cell 16.3 10^3/uL (4.4-10.8)
[2019-11-27 15:31] LABS: INR 1.13 (0.9-1.15); Partial Thromboplastin Time 24.3 sec (23.64-32.05)
[2019-11-27 15:37] LABS: BUN/Creatinine Ratio 42.1; Calcium 8.5 mg/dL (8.5-10.1); Potassium 4.4 mmol/L (3.5-5.1)
[2019-11-27 17:00] VITALS: BP 99/69
--- NOTE | 2019-11-27 18:00 | NUR ---
MEDICAL RECORDS RECEIVED FROM [facility] AND PLACED ON THE CHART. DR. KULKARNI PLANS FOR [facility] TOMORROW. CONSENTS PRINTED.
[2019-11-27] MEDS: TAMSULOSIN HYDROCHLORIDE 0.4 MG CAP PO SCH (18:58)
--- NOTE | 2019-11-27 19:30 | NUR ---
Opening Shift Note Assumed care of patient, awake and alert x4. No S/S of distress/SOB or pain. Call light is within reach, fall precautions in place. Instructed on POC and to call for assist PRN. All questions and concerns answered, will continue to monitor for changes Q1hr and PRN.
[2019-11-27] MEDS: ATORVASTATIN 20 MG TAB PO SCH (22:10)
[2019-11-27 22:14] VITALS: BP 107/56
[2019-11-28 05:30] VITALS: BP 106/77
[2019-11-28] MEDS: ALBUTEROL SULF 2.5 MG/0.5ML(0.5%) NEB SOLN NEB SCH ×5 (06:11→22:54)
[2019-11-28] MEDS: BUDESONIDE (INHALATION) 0.5 MG/2 ML NEB NEB SCH ×2 (06:11→22:54)
[2019-11-28] MEDS: IPRATROPIUM BROM 0.5 MG/2.5ML INH SOL NEB SCH ×5 (06:11→22:54)
[2019-11-28] MEDS: ACCU-CHEK COMFORT CURVE STRIP VI SCH ×4 (06:28→22:01)
[2019-11-28] MEDS: InsuLIN REG 1unit/0.01ml Soln (100units/ml) SC SCH ×6 (06:28→22:43)
[2019-11-28] MEDS ORDERED: LIDOCAINE 2%HCL (LOCAL ANESTH.) INJ 20ML MDV ONE (07:42)
[2019-11-28] MEDS ORDERED: IOHEXOL 350 MG/ML 100ML IJ ONE ×2 (07:42→11:14)
--- NOTE | 2019-11-28 07:45 | NUR ---
Opening Note/ patient agitated Assumed care of patient, he is A & O x4. Patient immediately stated "what time is my procedure it was supposed to be at 6 this morning, no one knows what going on here, I can't eat since 5am and the doctor told me my procedure was at 6 this morning." This RN explained that the previous nurse Katty called and confirmed that the procedure is 9 am this morning. The patient stated "I was told different, you come in here and are being sarcastic and I want to talk to the person that knows what is going on, why I have to wait so long." This RN explained the policy regarding food and drink to be held prior to procedures to prevent injury. This RN informed the patient that I will inform the gas charger if he would like to speak to someone else regarding the subject. Bed is in lowest, locked position, call light within reach, no s/s of distress. Patient is ambulatory and safe independently. Will continue to monitor Q1h and PRN.
[2019-11-28 09:00] VITALS: BP 144/57
[2019-11-28] MEDS: FAMOTIDINE 20 MG TAB PO SCH (09:05)
[2019-11-28] MEDS: predniSONE 20 MG TAB PO SCH (09:05)
[2019-11-28] MEDS: AZITHROMYCIN 250 MG TAB PO SCH (09:05)
[2019-11-28] MEDS: DOCUSATE SOD 100 MG CAP PO PRN (09:06)
[2019-11-28] MEDS: LISINOPRIL 20 MG TAB PO SCH (09:07)
[2019-11-28] MEDS: oxyCODONE ER 20 MG TAB PO SCH ×2 (09:07→22:01)
[2019-11-28] MEDS: FINASTERIDE 5 MG TAB PO SCH (09:08)
[2019-11-28] MEDS: DULoxetine HCL 30 MG CAP PO SCH (09:08)
[2019-11-28] MEDS: amLODIPine BESYLATE 5 MG TAB PO SCH (09:09)
[2019-11-28] MEDS ORDERED: ANGIOMAX 250 MG VIAL IV ONE (09:52)
[2019-11-28] MEDS ORDERED: fentaNYL CITRATE 100 MCG/2 ML VL ONE (09:52)
[2019-11-28] MEDS ORDERED: SODIUM CHL 0.9% 0 ML ONE (09:53)
[2019-11-28] MEDS ORDERED: MIDAZOLAM HCL 1MG/1ML-2 ML VIAL ONE (09:53)
[2019-11-28] MEDS ORDERED: FUROSEMIDE 20 MG TAB PO SCH (10:00)
--- NOTE | 2019-11-28 10:15 | NUR ---
Respiratory note: PT AT PROCEDURE. BREATHING TX ALBUTEROL AND ATROVENT Q4 MISSED.
[2019-11-28] MEDS: Ensure HIGH Protein Chocolate 8oz Bottle PO SCH ×2 (12:00→18:06)
--- NOTE | 2019-11-28 12:40 | NUR ---
Patient returned from [facility] procedure Bedside report received from Teresa EATON in [facility]. Patient educated multiple times regarding flat position to maintain for safety and bleeding precautions. Informed patient that his time to sit up is 1345. This patient states "can you call the doctor and tell him that I have to pee and that I can't wait, I need him to come up here and tell me that I can't sit up." This RN explained that there are risks that he can bleed. Patient conceded to wait until he can sit up. Patient is stable at this time, dressing to the right groin is clean and dry, surrounding tissue is soft and no s/s of hematoma or bleeding. Pulse to the right foot is 2+. Will continue to monitor Q1h and PRN.
--- NOTE | 2019-11-28 12:42 | NUR ---
Patient used urinal in bed with no problems. Initially he wanted to get up to go pee and did not want to wait for his "up time."
--- NOTE | 2019-11-28 13:10 | NUR ---
Dr. Sam at bedside. Dr. Sam informed patient of risks of getting up prior to the designated time, patient agreed to wait. Flaco discussed procedure that patient will have on Sunday. Will wait for orders for consents.
[2019-11-28] MEDS: ALPRAZolam 0.25 MG TAB PO PRN ×2 (13:34→22:01)
[2019-11-28] MEDS: POTASSIUM CHL 10 Meq TABLET PO SCH (13:35)
[2019-11-28 17:00] VITALS: BP 86/61
[2019-11-28] MEDS: TAMSULOSIN HYDROCHLORIDE 0.4 MG CAP PO SCH (18:06)
[2019-11-28 18:15] VITALS: BP 110/72
--- NOTE | 2019-11-28 19:35 | NUR ---
Opening Shift Note Assumed care of patient, awake and alert x4. No S/S of distress/SOB or pain. Right groin dressing is dry and intact, no signs of new bleeding, soft with no signs of hematoma. Call light is within reach, side rails up x2, bed is in the lowest position. Instructed on POC and to call for assist PRN. All questions and concerns answered, will continue to monitor for changes Q1hr and PRN.
[2019-11-28 21:58] VITALS: BP 101/67
[2019-11-28] MEDS: ATORVASTATIN 20 MG TAB PO SCH (22:01)
--- NOTE | 2019-11-28 22:20 | NUR ---
IV insertion to LFA IV access obtained, via clean sterile technique by inserting 20 gauge catheter at the LFA after 1 attempt(s). IV secured properly. No trauma to site. Patient tolerated well.
--- NOTE | 2019-11-28 22:25 | NUR ---
IV removal per 72 hr hospital policy IV DC'd with clean sterile technique, catheter fully intact. Pressure dressing applied to site. Patient tolerated well.
[2019-11-28 22:58] VITALS: BP 101/67
[2019-11-29 05:18] LABS: Basophils # (auto) 0 10 ^3/uL (0-0.2); Basophils % (auto) 0.1 % (0.0-2.0); Eosinophils # (auto) 0 10 ^3/uL (0-0.8); Eosinophils % (auto) 0.3 % (0.0-7.0); Hematocrit 45.5 % (41.0-53.0); Hemoglobin 15.1 g/dL (13.5-17.5); Lymphocytes # (auto) 1.6 10 ^3/uL (0.4-5.4); Lymphocytes % (auto) 13.3 % (10.0-50.0); Mean Corpuscular Hemoglobin 29.7 pg (28.0-32.0); Mean Corpuscular Hgb Conc. 33.1 g/dL (32.0-36.0); Mean Corpuscular Volume 89.7 fL (80.0-100.0); Monocytes # (auto) 1.3 10 ^3/uL (0-1.3); Monocytes % (auto) 10.5 % (0.0-12.0); Neutrophils # (auto) 9.2 10 ^3/uL (1.6-8.6); Neutrophils % (auto) 75.8 % (37.0-80.0); Platelet Count (auto) 261 10^3/uL (140-450); Red Blood Cells 5.07 10^6/uL (4.5-5.90); Red Cell Distribution Width 13.7 % (11.8-14.3); White Blood Cell 12.1 10^3/uL (4.4-10.8)
[2019-11-29 05:32] LABS: BUN/Creatinine Ratio 39.8; Calcium 8.3 mg/dL (8.5-10.1)
[2019-11-29 05:41] VITALS: BP 104/80
[2019-11-29] MEDS: ALBUTEROL SULF 2.5 MG/0.5ML(0.5%) NEB SOLN NEB SCH ×5 (05:49→22:00)
[2019-11-29] MEDS: BUDESONIDE (INHALATION) 0.5 MG/2 ML NEB NEB SCH ×2 (05:49→19:52)
[2019-11-29] MEDS: IPRATROPIUM BROM 0.5 MG/2.5ML INH SOL NEB SCH ×5 (05:49→22:00)
[2019-11-29] MEDS: ACCU-CHEK COMFORT CURVE STRIP VI SCH ×4 (06:30→22:00)
[2019-11-29] MEDS: InsuLIN REG 1unit/0.01ml Soln (100units/ml) SC SCH ×5 (06:30→22:00)
--- NOTE | 2019-11-29 07:30 | NUR ---
Opening Shift Note Assumed care of patient, awake and alert. No S/S of distress/SOB or pain. Instructed on POC and to call for assist PRN, will continue to monitor for changes Q1hr and PRN.
[2019-11-29] MEDS: Ensure HIGH Protein Chocolate 8oz Bottle PO SCH ×3 (08:00→18:00)
[2019-11-29 09:00] VITALS: BP 109/89
[2019-11-29] MEDS ORDERED: FUROSEMIDE 100 MG/10ML VIAL IV SCH (10:00)
[2019-11-29] MEDS: ALPRAZolam 0.25 MG TAB PO PRN (10:03)
[2019-11-29] MEDS: DULoxetine HCL 30 MG CAP PO SCH (10:03)
[2019-11-29] MEDS: predniSONE 20 MG TAB PO SCH (10:04)
[2019-11-29] MEDS: DOCUSATE SOD 100 MG CAP PO PRN ×2 (10:04→19:55)
[2019-11-29] MEDS: LISINOPRIL 20 MG TAB PO SCH (10:04)
[2019-11-29] MEDS: FINASTERIDE 5 MG TAB PO SCH (10:04)
[2019-11-29] MEDS: SERTRALINE HCL 50 MG TAB PO SCH (10:04)
[2019-11-29] MEDS: POTASSIUM CHL 10 Meq TABLET PO SCH (10:05)
[2019-11-29] MEDS: FAMOTIDINE 20 MG TAB PO SCH ×2 (10:05→22:14)
[2019-11-29] MEDS: AZITHROMYCIN 250 MG TAB PO SCH (10:06)
[2019-11-29] MEDS: cefTRIAXone 1GM/50ML D5W 50 ML IV SCH (10:07)
[2019-11-29] MEDS: amLODIPine BESYLATE 5 MG TAB PO SCH (10:07)
[2019-11-29] MEDS: oxyCODONE ER 20 MG TAB PO SCH ×2 (10:07→22:14)
--- NOTE | 2019-11-29 12:00 | NUR ---
Dr. Watkins in to see patient as hospitalist.
[2019-11-29 13:00] VITALS: BP 112/82
[2019-11-29] MEDS: TAMSULOSIN HYDROCHLORIDE 0.4 MG CAP PO SCH (18:28)
--- NOTE | 2019-11-29 18:58 | NUR ---
Patient is resting quietly. Report to NOC shift.
[2019-11-29] MEDS: FUROSEMIDE 20 MG/2 ML VIAL IV SCH (19:12)
--- NOTE | 2019-11-29 19:30 | NUR ---
Opening Shift Note Assumed care of patient after receiving report from day RNHui. Patient is awake and alert, resting comfortably sitting at side of bed. No S/S of distress/SOB or pain. Instructed on POC and to call for assist PRN, will continue to monitor for changes Q1hr and PRN.
[2019-11-29 21:45] VITALS: BP 99/59
[2019-11-29] MEDS ORDERED: CARVEDILOL 3.125 MG TAB PO SCH (22:00)
--- NOTE | 2019-11-29 22:08 | NUR ---
RT NOTE: PT WOKEN UP FOR SCHEDULED MED NEB TX, PT STATED HE DOESN'T WANT THIS TIME. HE WANTS TO SLEEP. NO TX GIVEN AT THIS TIME.
[2019-11-29] MEDS: ATORVASTATIN 20 MG TAB PO SCH (22:13)
[2019-11-30 04:45] VITALS: BP 120/80
[2019-11-30] MEDS: FUROSEMIDE 20 MG/2 ML VIAL IV SCH ×2 (05:43→18:59)
[2019-11-30] MEDS: IPRATROPIUM BROM 0.5 MG/2.5ML INH SOL NEB SCH ×6 (06:00→21:11)
--- NOTE | 2019-11-30 06:00 | NUR ---
Patient resistive to care Patient became irate when woken up to receive scheduled medication. Unable to educate on IS at this time due to patient refusal. Addendum: 11/30/19 at 0634 by Corin Barba RN Patient refusing accu check, patient stating he "isn't diabetic so I don't know why you guys keep checking me, its pointless". Patient educated on need/rationale of monitoring blood sugar since patient is receiving steroids which increases blood sugar.
[2019-11-30] MEDS: InsuLIN REG 1unit/0.01ml Soln (100units/ml) SC SCH ×4 (06:30→21:14)
[2019-11-30] MEDS: ACCU-CHEK COMFORT CURVE STRIP VI SCH ×4 (06:30→21:14)
[2019-11-30] MEDS: ALBUTEROL SULF 2.5 MG/0.5ML(0.5%) NEB SOLN NEB SCH ×6 (06:41→21:11)
--- NOTE | 2019-11-30 06:41 | NUR ---
RT NOTE: PT. REFUSED BREATHING TX. AT THIS TIME. NO S/S OF RESPIRATORY DISTRESS NOTED. PT. HR 82, RR 16, POX 97% 4L N/C. PT. AWARE TO NOTIFY RN IF BREATHING TX. IS NEEDED.
[2019-11-30] MEDS: Ensure HIGH Protein Chocolate 8oz Bottle PO SCH ×3 (08:00→18:00)
[2019-11-30] MEDS: CARVEDILOL 3.125 MG TAB PO SCH ×2 (08:00→18:58)
[2019-11-30 08:47] VITALS: BP 86/64
[2019-11-30] MEDS: predniSONE 20 MG TAB PO SCH (09:01)
[2019-11-30] MEDS: FAMOTIDINE 20 MG TAB PO SCH ×2 (09:01→21:10)
[2019-11-30] MEDS: AZITHROMYCIN 250 MG TAB PO SCH (09:01)
[2019-11-30] MEDS: SERTRALINE HCL 50 MG TAB PO SCH (09:02)
[2019-11-30] MEDS: POTASSIUM CHL 10 Meq TABLET PO SCH (09:02)
[2019-11-30] MEDS: DULoxetine HCL 30 MG CAP PO SCH (09:02)
[2019-11-30] MEDS: FINASTERIDE 5 MG TAB PO SCH (09:03)
[2019-11-30] MEDS: oxyCODONE ER 20 MG TAB PO SCH ×2 (09:04→21:10)
[2019-11-30] MEDS: cefTRIAXone 1GM/50ML D5W 50 ML IV SCH (09:12)
[2019-11-30] MEDS: ALPRAZolam 0.25 MG TAB PO PRN (09:12)
[2019-11-30] MEDS: ASPirin 81 mg TAB PO SCH (09:44)
[2019-11-30] MEDS: LISINOPRIL 20 MG TAB PO SCH (09:45)
[2019-11-30] MEDS: ENOXAPARIN SOD 40 MG/0.4 ML SYRINGE SC SCH (09:45)
[2019-11-30] MEDS: BUDESONIDE (INHALATION) 0.5 MG/2 ML NEB NEB SCH ×2 (09:52→21:10)
[2019-11-30] MEDS ORDERED: LACTULOSE 20Gm/30ML SOLN PO PRN (12:45)
[2019-11-30 13:00] VITALS: BP 104/74
[2019-11-30] MEDS: TAMSULOSIN HYDROCHLORIDE 0.4 MG CAP PO SCH ×2 (13:03→21:10)
[2019-11-30] MEDS: DOCUSATE SOD 100 MG CAP PO PRN (13:04)
[2019-11-30] MEDS: MECLIZINE HCL 25 MG TAB PO PRN (13:04)
[2019-11-30] MEDS: HYDROcodone-ACET 5/325MG TAB PO PRN ×2 (13:06→18:58)
[2019-11-30 13:14] LABS: Basophils # (auto) 0 10 ^3/uL (0-0.2); Basophils % (auto) 0.2 % (0.0-2.0); Eosinophils # (auto) 0 10 ^3/uL (0-0.8); Eosinophils % (auto) 0.3 % (0.0-7.0); Hematocrit 49.9 % (41.0-53.0); Hemoglobin 17.2 g/dL (13.5-17.5); Lymphocytes # (auto) 0.7 10 ^3/uL (0.4-5.4); Lymphocytes % (auto) 4.1 % (10.0-50.0); Mean Corpuscular Hemoglobin 31.1 pg (28.0-32.0); Mean Corpuscular Hgb Conc. 34.5 g/dL (32.0-36.0); Mean Corpuscular Volume 90.1 fL (80.0-100.0); Monocytes # (auto) 1.1 10 ^3/uL (0-1.3); Monocytes % (auto) 6.6 % (0.0-12.0); Neutrophils # (auto) 14.6 10 ^3/uL (1.6-8.6); Neutrophils % (auto) 88.8 % (37.0-80.0); Platelet Count (auto) 292 10^3/uL (140-450); Red Blood Cells 5.53 10^6/uL (4.5-5.90); Red Cell Distribution Width 13.7 % (11.8-14.3); White Blood Cell 16.4 10^3/uL (4.4-10.8)
[2019-11-30 13:33] LABS: INR 1.02 (0.9-1.15); Partial Thromboplastin Time 24.4 sec (23.64-32.05)
[2019-11-30 13:35] LABS: Albumin 2.8 g/dL (3.4-5.0); Potassium 5.1 mmol/L (3.5-5.1)
[2019-11-30 13:39] LABS: BUN/Creatinine Ratio 35.4; Bilirubin, Total 0.8 mg/dL (0.2-1.0); Phosphorus 2.8 mg/dL (2.5-4.90); Total Protein 6.4 g/dL (6.4-8.2)
--- NOTE | 2019-11-30 14:48 | NUR ---
RT NOTE: PT. IN SHOWER, CHECKED MULTIPLE TIMES ON PT. TO SEE IF HE WAS OUT. RN AWARE I WAS ROUNDING.
[2019-11-30 17:00] VITALS: BP 117/79
--- NOTE | 2019-11-30 19:30 | NUR ---
Opening Shift Note Assumed care of patient, awake and alert. No S/S of distress/SOB or pain. Insructed on POC and to callfor assist PRN, will continue to monitor for changes Q1hr and PRN. Fall and safety precautions in place. Call light within reach. RT paged for breathing treatment at patient's request
[2019-11-30] MEDS: ATORVASTATIN 20 MG TAB PO SCH (21:10)
--- NOTE | 2019-11-30 21:15 | NUR ---
REFUSE Informed patient blood sugar needed to be checked at this time per MD order. Patient refusing. Patient also stated he had BM today, but requesting stool softener. Informed patient that stool softener is on board and ordered BID. Informed patient he received dose earlier today and medication not available to give yet. Patient raising voice and becoming agitated, demanding to "call the doctor" and "tell him again." Informed patient that he has PRN laxative ordered as well and offered to patient, but refusing. Will inform patient when PRN stool softener is available for administration at later time. Will continue to monitor
[2019-11-30 22:00] VITALS: BP 105/75
[2019-12-01] VITALS (8 sets, daily range): BP systolic 92–133; BP diastolic 61–94
--- NOTE | 2019-12-01 00:30 | NUR ---
IV insertion IV access obtained, via clean sterile technique by inserting 20 gauge catheter at LFA after 1 attempt. IV secured properly. No trauma to site. Patient tolerated well. Informed patient about scheduled procedure later today and the need for second IV access. Patient verbalized understanding and agreement. Also, informed patient of being NPO for breakfast in preparation, verbalized understanding and agreement. Will inform day shift RN
--- NOTE | 2019-12-01 01:00 | NUR ---
IV insertion IV access obtained, via clean sterile technique by inserting 20 gauge catheter at RFA after first attempt. IV secured properly. No trauma to site. Patient tolerated well. IV removal IV DC'd with clean sterile technique, catheter fully intact. Pressure dressing applied to site. Patient tolerated well. NOTE: LFA 20g removed. Patient states it was painful
[2019-12-01] MEDS: FUROSEMIDE 20 MG/2 ML VIAL IV SCH ×2 (05:11→18:00)
[2019-12-01] MEDS: HYDROcodone-ACET 5/325MG TAB PO PRN (05:11)
[2019-12-01] MEDS: InsuLIN REG 1unit/0.01ml Soln (100units/ml) SC SCH ×4 (06:35→20:42)
[2019-12-01] MEDS: ACCU-CHEK COMFORT CURVE STRIP VI SCH ×4 (06:36→20:43)
--- NOTE | 2019-12-01 06:47 | NUR ---
REFUSE Patient refusing morning lab draw, stating "I'll wait for the doctor." Informed patient that MD needs lab results this morning to determine plan of care, patient refusing education, repeating "I'll wait for the doctor." Will inform day shift RN
[2019-12-01] MEDS: IPRATROPIUM BROM 0.5 MG/2.5ML INH SOL NEB SCH ×5 (07:13→22:37)
[2019-12-01] MEDS: ALBUTEROL SULF 2.5 MG/0.5ML(0.5%) NEB SOLN NEB SCH ×5 (07:13→22:37)
--- NOTE | 2019-12-01 07:30 | NUR ---
Opening shift note, Assumed care of patient. Patient resting with eyes closed, respirations even and non-labored with no s/s of distress. NC at 4L. Left and right IV flushed, patent and intact. POC written on board, will return to discuss POC with patient upon waking. Bed lowered/locked with 2 side rails up. Call light within reach. Will continue to monitor.
[2019-12-01] MEDS: CARVEDILOL 3.125 MG TAB PO SCH ×2 (08:00→18:00)
[2019-12-01] MEDS: Ensure HIGH Protein Chocolate 8oz Bottle PO SCH ×3 (08:00→18:20)
--- NOTE | 2019-12-01 08:14 | NUR ---
STRESS TEST LYNDSAY FROM RADIOLOGY CONFIRMED PATIENT HAS 2 IVS AND TO KEEP PATIENT NPO.
[2019-12-01] MEDS ORDERED: DOBUTamine 1000MCG/ML 100 ML IV ONE (08:40)
--- NOTE | 2019-12-01 08:45 | NUR ---
COREG HELD BP 108/68 P 75 INFORMED REG IN STRESS LAB.
--- NOTE | 2019-12-01 09:12 | NUR ---
REFUSED AM LABS PATIENT STATED "I WANT TO WAIT FOR THE DOCTOR!"
[2019-12-01] MEDS: cefTRIAXone 1GM/50ML D5W 50 ML IV SCH (09:17)
[2019-12-01] MEDS: ASPirin 81 mg TAB PO SCH (10:00)
[2019-12-01] MEDS: ENOXAPARIN SOD 40 MG/0.4 ML SYRINGE SC SCH (10:00)
--- NOTE | 2019-12-01 10:00 | NUR ---
GERBER IBRAHIM HELD PATIENT NPO FOR STRESS TEST.
[2019-12-01] MEDS: BUDESONIDE (INHALATION) 0.5 MG/2 ML NEB NEB SCH ×2 (10:16→22:37)
--- NOTE | 2019-12-01 10:51 | NUR ---
PATIENT TAKEN TO STRESS TEST.
[2019-12-01] MEDS ORDERED: diphenhdrAMINE HCL 50 MG/1 ML VL IV ONE (11:00)
[2019-12-01] MEDS ORDERED: MIDAZOLAM HCL 1MG/1ML-2 ML VIAL IV ONE (11:00)
[2019-12-01] MEDS ORDERED: LIDOCAINE VISCOUS 2% 15ML UD PO ONE (11:00)
[2019-12-01] MEDS ORDERED: fentaNYL CITRATE 100 MCG/2 ML VL IV ONE (11:00)
[2019-12-01] MEDS ORDERED: ONDANSETRON HCL 4 MG/2 ML VIAL IV ONE (11:47)
--- NOTE | 2019-12-01 12:09 | NUR ---
RETURNED FROM STRESS TEST. DENIED PAIN NO SIGNS OF DISTRESS. PER REPORT PATIENT REFUSED SAUMYA.
--- NOTE | 2019-12-01 12:28 | NUR ---
REFUSED ACCUCHECK EDUCATED PATIENT ON THE DANGERS OF NONCOMPLIANCE, PATIENT VERBALIZED UNDERSTANDING.
[2019-12-01] MEDS: AZITHROMYCIN 250 MG TAB PO SCH (13:08)
[2019-12-01] MEDS: FAMOTIDINE 20 MG TAB PO SCH ×2 (13:08→20:40)
[2019-12-01] MEDS: LISINOPRIL 20 MG TAB PO SCH (13:08)
[2019-12-01] MEDS: POTASSIUM CHL 10 Meq TABLET PO SCH (13:09)
[2019-12-01] MEDS: SERTRALINE HCL 50 MG TAB PO SCH (13:09)
[2019-12-01] MEDS: predniSONE 20 MG TAB PO SCH (13:10)
[2019-12-01] MEDS: DULoxetine HCL 30 MG CAP PO SCH (13:10)
[2019-12-01] MEDS: FINASTERIDE 5 MG TAB PO SCH (13:10)
[2019-12-01] MEDS: TAMSULOSIN HYDROCHLORIDE 0.4 MG CAP PO SCH ×2 (13:10→20:40)
[2019-12-01] MEDS: oxyCODONE ER 20 MG TAB PO SCH ×2 (13:10→20:40)
--- NOTE | 2019-12-01 14:27 | NUR ---
Nutrition Follow-up Wt.: 61.6 kg Pt is currently NPO d/t scheduled medical procedure. Prior to NPO status, pt with fair PO intake aeb 66% intake over 6 meals. Pt also receiving Ensure high protein TID for nutritional supplement. Pt with no noted distress per RN doc. Will continue to monitor PO intake, skin status, pertinent labs and weight trends. Will f/u in 3 to 5 days. Est. Energy Needs: 5864-1532 kcal (25-30 kcal/kg BW). Est. Protein Needs: 76-95 gms/day (1.2-1.5 gms/kg BW). Labs 11/30: NA 131 L, CL 92 L, GLUC 126 H, AST 43 H, ALT 185 H, ALB 2.8 L, TPT WNL Skin: Francisco scale 20, low risk, skin intact. PLEASE REFER TO WOUND ASSESSMENT REPORT FOR FULL DETAILS GI: Pt had BM on 11/29/19 per breast puller. PES: 1) Altered nutrition related lab values r/t current medical condition aeb hypoalbuminemia, hypoproteinemia, hyponatremia, hypocalcemia Recommendations: 1) Consider to continue monitoring pertinent labs. If Albumin continues trending down, consider Prostat 1 pkt BID. 2) Continue current plan of care.
--- NOTE | 2019-12-01 18:48 | NUR ---
IV removal IV DC'd from left ac with clean sterile technique, catheter fully intact. Pressure dressing applied to site. Patient tolerated well.
--- NOTE | 2019-12-01 18:49 | NUR ---
POM DR BUENO NEW ORDERS TO RESUME HOME MEDICATIONS.RX UPDATED S/W CHAPO.
--- NOTE | 2019-12-01 18:58 | NUR ---
ENDORSED CARE TO NIGHT RN.
--- NOTE | 2019-12-01 19:13 | NUR ---
Opening Shift Note Assumed care of patient, awake and alert and agitated. O2 cannula not on patient, O2 saturation at 68%. Placed O2 on patient at 4L via nasal cannula. O2 Saturation went up to 94%. Instructed patient to keep nasal cannula on. Patient verbalized understanding. Instructed on POC and to call for assist PRN, will continue to monitor for changes Q1hr and PRN. Side rails up x2. Bed locked in lowest position. Call light within reach.
[2019-12-01] MEDS: ATORVASTATIN 20 MG TAB PO SCH (20:40)
[2019-12-01] MEDS: MELATONIN 3MG PO SCH (20:41)
[2019-12-01] MEDS: AMITIZA 24 MCG PO SCH (20:41)
[2019-12-01] MEDS: BENZONATATE 100 MG PO SCH (20:41)
--- NOTE | 2019-12-01 22:00 | NUR ---
Refused accucheck Educated patient on importance of having blood sugar checked. Patient verbalized understanding and continues to refuse. Continue care.
[2019-12-02] MEDS: ALPRAZolam 0.25 MG TAB PO PRN ×2 (04:10→21:24)
[2019-12-02 05:00] VITALS: BP 101/64
--- NOTE | 2019-12-02 05:00 | NUR ---
Refused blood draw Educated patient on importance of having blood drawn. Patient verbalized understanding and continues to refuse. Continue care.
[2019-12-02] MEDS: BENZONATATE 100 MG PO SCH ×3 (06:00→22:00)
[2019-12-02] MEDS: InsuLIN REG 1unit/0.01ml Soln (100units/ml) SC SCH ×4 (06:09→21:25)
[2019-12-02] MEDS: ACCU-CHEK COMFORT CURVE STRIP VI SCH ×4 (06:10→21:27)
--- NOTE | 2019-12-02 06:51 | NUR ---
Refused accucheck Educated patient on importance of having blood sugar checked. Patient verbalized understanding and continues to refuse. Continue care.
[2019-12-02] MEDS: IPRATROPIUM BROM 0.5 MG/2.5ML INH SOL NEB SCH ×5 (06:59→22:28)
[2019-12-02] MEDS: ALBUTEROL SULF 2.5 MG/0.5ML(0.5%) NEB SOLN NEB SCH ×5 (06:59→22:28)
--- NOTE | 2019-12-02 07:33 | NUR ---
Endorsed care to day shift RN.
[2019-12-02 08:00] VITALS: BP 114/62
[2019-12-02] MEDS: Ensure HIGH Protein Chocolate 8oz Bottle PO SCH ×3 (08:00→18:00)
[2019-12-02] MEDS: CARVEDILOL 3.125 MG TAB PO SCH ×2 (08:00→18:00)
--- NOTE | 2019-12-02 08:00 | NUR ---
RECEIVED REPORT FROM DAY RN. PATIENT ASLEEP RESPIRATIONS RELAXED AND EVEN NO SIGN OF DISTRESS. BED ALARM ON, CALL LIGHT WITHIN REACH, FALL BAND ON AND NON SKID SOCKS ON FEET. PER NIGHT RN PATIENT REFUSED ACCUCHECKS, LABS AND MEDICATIONS. WILL CONTINUE TO MONITOR, PROVIDE EDUCATION AND REORIENTATION.
[2019-12-02 09:00] VITALS: BP 87/60
[2019-12-02] MEDS: AMITIZA 24 MCG PO SCH ×2 (10:00→21:22)
[2019-12-02] MEDS: FUROSEMIDE 100 MG/10ML VIAL IV SCH (10:00)
[2019-12-02] MEDS: BUDESONIDE (INHALATION) 0.5 MG/2 ML NEB NEB SCH ×2 (10:00→18:45)
[2019-12-02] MEDS: oxyCODONE ER 20 MG TAB PO SCH ×2 (10:00→21:22)
[2019-12-02] MEDS: ASPirin 81 mg TAB PO SCH (10:00)
[2019-12-02] MEDS: LISINOPRIL 20 MG TAB PO SCH (10:00)
--- NOTE | 2019-12-02 10:15 | NUR ---
PATIENT VERBALLY COMBATIVE WITH STAFF SECURITY AT BEDSIDE. GENTLE, FIRM VERBAL REORIENTATION PROVIDED BY THIS RN AND STAFF. PATIENT REFUSED ASA AND LOVENOX; LASIX, COREG AND OXYCONTIN WERE HELD D/T A BP 87/60 P72. ALL OTHER MEDICATIONS WERE ADMINISTERED BEDSIDE. Addendum: 12/02/19 at 1519 by DARIUS BRYAN RN HALL CLEANER MADE AWARE.
[2019-12-02 10:19] LABS: Basophils # (auto) 0 10 ^3/uL (0-0.2); Basophils % (auto) 0.1 % (0.0-2.0); Eosinophils # (auto) 0.1 10 ^3/uL (0-0.8); Eosinophils % (auto) 0.6 % (0.0-7.0); Hematocrit 44.9 % (41.0-53.0); Hemoglobin 14.6 g/dL (13.5-17.5); Lymphocytes # (auto) 1.1 10 ^3/uL (0.4-5.4); Mean Corpuscular Hemoglobin 29.4 pg (28.0-32.0); Mean Corpuscular Hgb Conc. 32.6 g/dL (32.0-36.0); Mean Corpuscular Volume 90.2 fL (80.0-100.0); Monocytes # (auto) 1.3 10 ^3/uL (0-1.3); Monocytes % (auto) 12.1 % (0.0-12.0); Neutrophils # (auto) 8.5 10 ^3/uL (1.6-8.6); Neutrophils % (auto) 77.2 % (37.0-80.0); Nucleated Red Blood Cells % 0.1 %; Platelet Count (auto) 244 10^3/uL (140-450); Red Blood Cells 4.98 10^6/uL (4.5-5.90); Red Cell Distribution Width 13.6 % (11.8-14.3)
[2019-12-02 10:26] LABS: BUN/Creatinine Ratio 39.8; Calcium 8.4 mg/dL (8.5-10.1)
[2019-12-02] MEDS: FAMOTIDINE 20 MG TAB PO SCH ×2 (10:56→21:24)
[2019-12-02] MEDS: SERTRALINE HCL 50 MG TAB PO SCH (10:56)
[2019-12-02] MEDS: TAMSULOSIN HYDROCHLORIDE 0.4 MG CAP PO SCH ×2 (10:57→21:22)
[2019-12-02] MEDS: predniSONE 20 MG TAB PO SCH (10:57)
[2019-12-02] MEDS: DULoxetine HCL 30 MG CAP PO SCH (10:57)
[2019-12-02] MEDS: AZITHROMYCIN 250 MG TAB PO SCH (10:57)
[2019-12-02] MEDS: POTASSIUM CHL 10 Meq TABLET PO SCH (10:58)
[2019-12-02] MEDS: FINASTERIDE 5 MG TAB PO SCH (10:59)
[2019-12-02 13:00] VITALS: BP 117/62
--- NOTE | 2019-12-02 14:00 | NUR ---
Respiratory note: PT REFUSED MEDNEB.
[2019-12-02 17:00] VITALS: BP 130/87
--- NOTE | 2019-12-02 17:00 | NUR ---
PATIENT VERBALLY ABUSIVE TO ROOM MATE. PRODUCTION SUPERVISOR OFF SHIFT NOTIFIED. PATIENT MOVED TO 201 BY RN SOCIAL SERVICES;TOLERATED WELL. BED ALARM ON, WHEELS LOCKED BED IN LOWEST POSITION.
--- NOTE | 2019-12-02 17:00 | NUR ---
PATIENT REFUSED ACCUCHECK AND COREG. EDUCATED PATIENT OF THE RISKS OF NOT GETTING HIS BLOOD SUGAR CHECKED AND NOT TAKING HIS CARDIAC MEDICATIONS.
--- NOTE | 2019-12-02 19:10 | NUR ---
Opening Shift Note Assumed care of patient, awake and alert and agitated. The patient states that he did not get his medications and want them immediately. Educated patient on medication schedule. Patient states that he is being lied to about when he is suppose to receive his medication. Patient's NC is in place. Instructed patient to keep nasal cannula on to avoid decrease in oxygen saturation. Patient verbalized understanding. Side rails are up x2, bed is in lowest position, and call light is within reach. Instructed on POC and to call for assist PRN, will continue to monitor for changes Q1hr and PRN. .
--- NOTE | 2019-12-02 19:16 | NUR ---
ENDORSED CARE O NIGHT RN
--- NOTE | 2019-12-02 20:55 | NUR ---
PAIN ASSESSMENT Per ROPING MACHINE TENDER, the patient requested pain medication. Upon assessment, the patient states that he is currently having 10/10 generalized pain. Will administer pain medication per MD order.
--- NOTE | 2019-12-02 21:00 | NUR ---
PATIENT REFUSAL The patient states that he does not want his sugar to be checked. The patient has been educated on the risk of not getting his sugar checked. The patient verbalized understanding.
[2019-12-02] MEDS: MELATONIN 3MG PO SCH (21:22)
[2019-12-02] MEDS: ATORVASTATIN 20 MG TAB PO SCH (21:22)
[2019-12-02 21:23] VITALS: BP 117/81
--- NOTE | 2019-12-02 22:45 | NUR ---
PAIN REASSESSMENT The patient is resting comfortably in bed. Will continue to monitor the patient's status.
[2019-12-03 05:11] VITALS: BP 135/88
[2019-12-03] MEDS: ALBUTEROL SULF 2.5 MG/0.5ML(0.5%) NEB SOLN NEB SCH ×5 (05:46→21:29)
[2019-12-03] MEDS: IPRATROPIUM BROM 0.5 MG/2.5ML INH SOL NEB SCH ×5 (05:47→21:29)
[2019-12-03] MEDS: BENZONATATE 100 MG PO SCH ×3 (06:00→22:00)
--- NOTE | 2019-12-03 06:30 | NUR ---
PATIENT REFUSAL Patient refused to check his sugar level this morning. The patient has been educated on the risk of not monitoring his sugar level. Patient verbalized understanding but still refused the glucose check.
[2019-12-03] MEDS: ACCU-CHEK COMFORT CURVE STRIP VI SCH ×4 (06:36→22:00)
[2019-12-03] MEDS: InsuLIN REG 1unit/0.01ml Soln (100units/ml) SC SCH ×4 (06:36→22:00)
[2019-12-03 08:37] VITALS: BP 104/68
[2019-12-03] MEDS: Ensure HIGH Protein Chocolate 8oz Bottle PO SCH ×3 (08:50→17:40)
[2019-12-03] MEDS: FAMOTIDINE 20 MG TAB PO SCH ×2 (10:00→22:00)
[2019-12-03] MEDS: SERTRALINE HCL 50 MG TAB PO SCH (10:00)
[2019-12-03] MEDS: AMITIZA 24 MCG PO SCH ×2 (10:00→22:00)
[2019-12-03] MEDS: FUROSEMIDE 100 MG/10ML VIAL IV SCH (10:00)
[2019-12-03] MEDS: LISINOPRIL 20 MG TAB PO SCH (10:00)
[2019-12-03] MEDS: DULoxetine HCL 30 MG CAP PO SCH (10:00)
[2019-12-03] MEDS: ASPirin 81 mg TAB PO SCH (10:00)
[2019-12-03] MEDS: BUDESONIDE (INHALATION) 0.5 MG/2 ML NEB NEB SCH ×2 (10:07→18:38)
[2019-12-03] MEDS: predniSONE 20 MG TAB PO SCH (10:14)
[2019-12-03] MEDS: CARVEDILOL 3.125 MG TAB PO SCH ×2 (10:15→17:40)
[2019-12-03] MEDS: oxyCODONE ER 20 MG TAB PO SCH ×2 (10:15→22:00)
[2019-12-03] MEDS: FINASTERIDE 5 MG TAB PO SCH (10:17)
[2019-12-03] MEDS: TAMSULOSIN HYDROCHLORIDE 0.4 MG CAP PO SCH ×2 (10:17→22:00)
[2019-12-03] MEDS: POTASSIUM CHL 10 Meq TABLET PO SCH (10:18)
[2019-12-03 12:59] VITALS: BP 104/68
--- NOTE | 2019-12-03 15:00 | NUR ---
DISCHARGE INSTRUCTIONS GIVEN IV REMOVED PATIENT THEN ASKED IF I CAN TAKE HIS RX TO THE PHARMACY DOWNSTAIRS. I INFORMED HIM THAT I CAN AND HE ALSO ASKED FOR A TAXI .
--- NOTE | 2019-12-03 17:20 | NUR ---
WENT DOWNSTAIRS TO [employer] [facility] MEDICATION FOR HIM THEY SAID HE HAD A $10.00 CO PAY. I WENT UPSTAIRS INFORMED PATIENT OF THE CO PAY.
--- NOTE | 2019-12-03 17:26 | NUR ---
INFORMED PATIENT THAT CO PAY IS $10.00 PATIENT SAID HIS MEDICARE SHOULD PAY FOR ALL OF HIS MEDICATION. I ASKED HIM IF HE COULD GET THE MONEY AND COME BACK TOMORROW FOR HIS MEDICATION HE SAID HE DOESN'T HAVE A RIDE AND HE WANTS TO APPEAL HIS DISCHARGE. I INFORMED CHARGE Parker PATIENT REQUESTING TO TALK TO HER. I PLACED A SOCIAL SERVICE CONSULT FOR APPEAL. GAVE PATIENT THE NUMBER TO CALL MEDICARE FOR APPEAL .
--- NOTE | 2019-12-03 20:15 | NUR ---
HOSPITALIST PAGED Hospitalist Jasvir has been paged to be notified about the patient's appeal.
--- NOTE | 2019-12-03 20:30 | NUR ---
HOSPITALIST RETURNED PAGED Hospitalist Jasvir has been notified that the patient has appealed his discharge. Order to hold discharge until tomorrow. Patient has also been placed on MS.
--- NOTE | 2019-12-03 20:40 | NUR ---
PATIENT REFUSAL Patient refused insertion of new IV. The patient has been educated on the need for a new IV. The patient verbalized understanding but still refused IV placement.
[2019-12-03 21:47] VITALS: BP 120/83
[2019-12-03] MEDS: MELATONIN 3MG PO SCH (22:00)
[2019-12-03] MEDS: ATORVASTATIN 20 MG TAB PO SCH (22:00)
[2019-12-04 04:58] VITALS: BP 105/83
[2019-12-04] MEDS: BENZONATATE 100 MG PO SCH (06:00)
[2019-12-04] MEDS: ACCU-CHEK COMFORT CURVE STRIP VI SCH ×2 (06:36→10:31)
[2019-12-04] MEDS: InsuLIN REG 1unit/0.01ml Soln (100units/ml) SC SCH ×2 (06:36→10:31)
[2019-12-04] MEDS: ALBUTEROL SULF 2.5 MG/0.5ML(0.5%) NEB SOLN NEB SCH ×2 (07:36→10:34)
[2019-12-04] MEDS: BUDESONIDE (INHALATION) 0.5 MG/2 ML NEB NEB SCH (07:36)
[2019-12-04] MEDS: IPRATROPIUM BROM 0.5 MG/2.5ML INH SOL NEB SCH ×2 (07:36→10:34)
[2019-12-04] MEDS: CARVEDILOL 3.125 MG TAB PO SCH (08:25)
[2019-12-04] MEDS: Ensure HIGH Protein Chocolate 8oz Bottle PO SCH (08:25)
--- NOTE | 2019-12-04 08:32 | NUR ---
re-assessment Per ss consult appealing discharge because of 10.00 copay for medication. I spoke with Camila Chen and she is getting patients copay waived from pharmacy. I spoke to patient and he agreed to discharge if he can get his prescriptions. RN notified. Addendum: 12/04/19 at 1533 by Camila Ortiz Amended: Links added.
[2019-12-04 09:00] VITALS: BP 134/85
[2019-12-04] MEDS: AMITIZA 24 MCG PO SCH (10:00)
[2019-12-04] MEDS: ASPirin 81 mg TAB PO SCH (10:00)
[2019-12-04] MEDS: FAMOTIDINE 20 MG TAB PO SCH (10:00)
[2019-12-04] MEDS: FUROSEMIDE 100 MG/10ML VIAL IV SCH (10:00)
[2019-12-04] MEDS: DULoxetine HCL 30 MG CAP PO SCH (10:00)
[2019-12-04] MEDS: TAMSULOSIN HYDROCHLORIDE 0.4 MG CAP PO SCH (10:11)
[2019-12-04] MEDS: SERTRALINE HCL 50 MG TAB PO SCH (10:11)
[2019-12-04] MEDS: MECLIZINE HCL 25 MG TAB PO PRN (10:11)
[2019-12-04] MEDS: oxyCODONE ER 20 MG TAB PO SCH (10:11)
[2019-12-04] MEDS: FINASTERIDE 5 MG TAB PO SCH (10:11)
[2019-12-04] MEDS: DOCUSATE SOD 100 MG CAP PO PRN (10:11)
[2019-12-04] MEDS: LISINOPRIL 20 MG TAB PO SCH (10:12)
[2019-12-04] MEDS: POTASSIUM CHL 10 Meq TABLET PO SCH (10:12)
[2019-12-04] MEDS: predniSONE 20 MG TAB PO SCH (10:13)
== END 2019-12-04 12:05 | disposition home or self-care (01) | DRG 286 ==
LOC: ER 11:22 → EDBD 11:22 → TELE 11:23 → TELE-CENTR 20:38
PROVIDERS: ADMIT Nurse Practitioner Acute Care; ATTEND Internal Medicine
PROC: B2111ZZ Fluoroscopy of Multiple Coronary Arteries using Low Osmolar Contrast (ICD-10-PCS; principal; 2019-11-28)
PROC: 4A023N8 Measurement of Cardiac Sampling and Pressure, Bilateral, Percutaneous Approach (ICD-10-PCS; 2019-11-28)
PROC: B2151ZZ Fluoroscopy of Left Heart using Low Osmolar Contrast (ICD-10-PCS; 2019-11-28)
DX: I11.0 Hypertensive heart disease with heart failure (principal); J96.21 Acute and chronic respiratory failure with hypoxia; J44.1 Chronic obstructive pulmonary disease with (acute) exacerbation; F20.89 Other schizophrenia; I50.43 Acute on chronic combined systolic (congestive) and diastolic (congestive) heart failure; I42.9 Cardiomyopathy, unspecified; R07.2 Precordial pain; E11.9 Type 2 diabetes mellitus without complications; R79.89 Other specified abnormal findings of blood chemistry; I25.10 Atherosclerotic heart disease of native coronary artery without angina pectoris; B19.20 Unspecified viral hepatitis C without hepatic coma; I35.0 Nonrheumatic aortic (valve) stenosis; M54.9 Dorsalgia, unspecified; E78.5 Hyperlipidemia, unspecified; G89.29 Other chronic pain; F41.9 Anxiety disorder, unspecified; R74.0 Nonspecific elevation of levels of transaminase and lactic acid dehydrogenase [LDH]; Z79.899 Other long term (current) drug therapy; Z80.9 Family history of malignant neoplasm, unspecified; Z82.0 Family history of epilepsy and other diseases of the nervous system
CPT/HCPCS: 36415; 71045; 71046; 71275; 76705; 80048; 80053; 80061; 80074; 80076; 81001; 82962; 83036; 83605; 83735; 83880; 84100; 84443; 84484; 85025; 85379; 85610; 85730; 86704; 86706; 86708; 86803; 87040; 87081; 87340; 87804; 93005; 93017; 93306; 93350; 94640; 96361; 96365; 96375; 99152; 99153; A4565; C1751; G0378; J0696; J1815; J2250

== ENCOUNTER 2019-12-11 12:49 | Emergency (ER) | payer MEDICARE, MEDICAID ==
[~2019-12-11] VITALS: Ht 172.7 cm; Wt 59.0 kg
[~2019-12-11 12:49] MED LIST: ALBUAER3 IN; AML5T PO; ATOR40TA52 PO; BENZ100C97 PO; BUDE1AER4 IN; CELE200C PO; DOCU-94 PO; DULO60CA PO; DULO60CA90 PO; FINA5TAB4 PO; LISI-646 PO; LOSA-69 PO; LUBI24CA6 PO; MELA3TAB27 PO; MOMLQ GT; PANT1INJ3 PO; PRE1T PO; SERT-274 PO; SIMV10TA84 PO; TAMS0.4C36 PO; TIZA4CAP PO
[2019-12-11 13:00] VITALS: BP 99/70
[2019-12-11 14:02] LABS: Basophils # (auto) 0.1 10 ^3/uL (0-0.2); Eosinophils # (auto) 0.1 10 ^3/uL (0-0.8); Eosinophils % (auto) 0.6 % (0.0-7.0); Hematocrit 49.3 % (41.0-53.0); Hemoglobin 16.4 g/dL (13.5-17.5); Lymphocytes # (auto) 2.2 10 ^3/uL (0.4-5.4); Lymphocytes % (auto) 21.8 % (10.0-50.0); Mean Corpuscular Hemoglobin 29.6 pg (28.0-32.0); Mean Corpuscular Hgb Conc. 33.3 g/dL (32.0-36.0); Monocytes # (auto) 1.1 10 ^3/uL (0-1.3); Monocytes % (auto) 10.7 % (0.0-12.0); Neutrophils # (auto) 6.7 10 ^3/uL (1.6-8.6); Neutrophils % (auto) 65.9 % (37.0-80.0); Nucleated Red Blood Cells % 0.1 %; Platelet Count (auto) 146 10^3/uL (140-450); Red Blood Cells 5.54 10^6/uL (4.5-5.90); Red Cell Distribution Width 13.7 % (11.8-14.3); White Blood Cell 10.1 10^3/uL (4.4-10.8)
[2019-12-11 14:30] LABS: Blood Urea Nitrogen 17 mg/dL (7-18); Calcium 8.3 mg/dL (8.5-10.1); Chloride 101 mmol/L (98-107); Glucose 103 mg/dL (74-106); Lipase 282 U/L (73-393); Sodium 135 mmol/L (136-145)
[2019-12-11] MEDS: MORPHINE SULFATE 4 MG/ML SYR/VIAL IV ONE ×2 (14:30→15:30)
[2019-12-11] MEDS: ONDANSETRON HCL 4 MG/2 ML VIAL IV ONE ×2 (14:30→15:30)
[2019-12-11 14:36] LABS: Alanine Aminotransferase 172 U/L (16-61); Albumin 2.3 g/dL (3.4-5.0); Alkaline Phosphatase 74 U/L (45-117); Anion Gap 7 (5-15); Aspartate Aminotransferase 98 U/L (15-37); BUN/Creatinine Ratio 18.5; Bilirubin, Total 1.7 mg/dL (0.2-1.0); Carbon Dioxide 27 mmol/L (21-32); GFR African American 105 mL/min; GFR Non-African American 87 mL/min; Lactate Dehydrogenase 192 U/L (87-241); Total Protein 6.3 g/dL (6.4-8.2)
== END 2019-12-11 16:02 | disposition home or self-care (01) ==
LOC: ER 12:49 → EDBD 12:49 → ER 16:02
DX: J18.9 Pneumonia, unspecified organism (principal); R10.9 Unspecified abdominal pain; J44.9 Chronic obstructive pulmonary disease, unspecified; I10 Essential (primary) hypertension; F17.210 Nicotine dependence, cigarettes, uncomplicated
CPT/HCPCS: 36415; 71045; 80053; 82728; 83605; 83615; 83690; 84484; 85025; 87040; 87070; 87804; 87880; 96374; 96375; 99284; J2270; J2405

== ENCOUNTER → 2019-12-31 | Emergency (ER) | payer MEDICARE, MEDICAID ==
[~2019-12-31] VITALS: Ht 172.7 cm; Wt 59.0 kg
[~2019-12-31] MED LIST changes: +IOHEXOL 350 MG/ML 100ML IJ ONE; +methylPREDNISolone SOD SUCC 125 MG/2 ML VL IV ONE
[2019-12-31 12:41] LABS: Basophils # (auto) 0.1 10 ^3/uL (0-0.2); Basophils % (auto) 1.2 % (0.0-2.0); Eosinophils # (auto) 0.1 10 ^3/uL (0-0.8); Eosinophils % (auto) 1.4 % (0.0-7.0); Hematocrit 44.1 % (41.0-53.0); Hemoglobin 14.5 g/dL (13.5-17.5); Lymphocytes # (auto) 2.9 10 ^3/uL (0.4-5.4); Lymphocytes % (auto) 40.7 % (10.0-50.0); Mean Corpuscular Hemoglobin 29.4 pg (28.0-32.0); Mean Corpuscular Hgb Conc. 32.8 g/dL (32.0-36.0); Mean Corpuscular Volume 89.6 fL (80.0-100.0); Monocytes # (auto) 0.6 10 ^3/uL (0-1.3); Monocytes % (auto) 9.2 % (0.0-12.0); Neutrophils # (auto) 3.4 10 ^3/uL (1.6-8.6); Neutrophils % (auto) 47.5 % (37.0-80.0); Nucleated Red Blood Cells % 0.2 %; Platelet Count (auto) 316 10^3/uL (140-450); Red Blood Cells 4.92 10^6/uL (4.5-5.90); Red Cell Distribution Width 14.2 % (11.8-14.3); White Blood Cell 7.1 10^3/uL (4.4-10.8)
[2019-12-31 12:51] VITALS: BP 121/86
[2019-12-31 12:54] LABS: INR 1.06 (0.9-1.15); Partial Thromboplastin Time 25.1 sec (23.64-32.05)
[2019-12-31 13:04] LABS: Albumin 2.5 g/dL (3.4-5.0); Anion Gap 4 (5-15); Blood Urea Nitrogen 10 mg/dL (7-18); Calcium 8.2 mg/dL (8.5-10.1); Carbon Dioxide 29 mmol/L (21-32); Chloride 108 mmol/L (98-107); Glucose 108 mg/dL (74-106); Sodium 141 mmol/L (136-145)
[2019-12-31 13:10] LABS: Alanine Aminotransferase 98 U/L (16-61); Alkaline Phosphatase 92 U/L (45-117); Aspartate Aminotransferase 64 U/L (15-37); BUN/Creatinine Ratio 11.8; Bilirubin, Total 0.7 mg/dL (0.2-1.0); GFR African American 115 mL/min; GFR Non-African American 95 mL/min; Total Protein 6.3 g/dL (6.4-8.2)
== END | disposition home or self-care (01) ==
LOC: ER 12:07
DX: J44.1 Chronic obstructive pulmonary disease with (acute) exacerbation (principal); I10 Essential (primary) hypertension; Z87.891 Personal history of nicotine dependence
CPT/HCPCS: 36415; 71045; 71275; 80053; 83880; 84484; 85025; 85610; 85730; 93005; 96374; 99285; J2930; Q9967